=== PATIENT | male | born 1945 | race Two or more races ===

== ENCOUNTER 2021-01-30 10:04 | Inpatient (IN) | payer OTHER ==
[2021-01-29 20:00] VITALS: BP 94/46
[~2021-01-30] VITALS: Ht 175.3 cm; Wt 69.4 kg
[~2021-01-30 10:04] MED LIST: ACET325T53 PO; ALBU8.5H8 IH; ALLO300T2 PO; AMIN887L PO; APIX2.5T PO; ASCO500C17 PO; ATOR20TA PO; BENZ1LOZ58 MM; BUME1TAB34 PO; CARV3.12 PO; CHOL50009 PO; CLOP75TA15 PO; DOCU-141 PO; FAMO20TA8 PO; GABA300C PO; GUAI-671 PO; HYDR-4385 PO; INSU100C10 SQ; LACT1CAP71 PO; LISI2.5T2 PO; MAGN400O6 PO; MAGN400T8 PO; METF-866 PO; METF500T PO; MULT-447 PO; OMEG1CAP PO; POLY17PO4 PO; SITA50TA PO; SODI1TAB66 PO; SPIR50TA5 PO; TAMS-12 PO; THIA100T88 PO
--- NOTE | 2021-01-30 10:05 | NUR ---
DR. BURTON AT BEDSIDE FOR EVAL
--- NOTE | 2021-01-30 10:08 | NUR ---
CODE STROKE ACTIVATED.
--- NOTE | 2021-01-30 10:10 | NUR ---
PT IS WHEELED TO CT SCAN VIA STROKE PROTOCOL.
[2021-01-30] MEDS ORDERED: IV NS 0.9% 250 ML IV ONE (10:14)
[2021-01-30] MEDS ORDERED: CT SWABBABLE VALVE TRANS SET 1 EA INFUS.SET MC ONE (10:14)
[2021-01-30] MEDS ORDERED: IOHEXOL-350 100 ML VIAL IV ONE (10:14)
--- NOTE | 2021-01-30 10:27 | NUR ---
PATIENT CAME BACK FROM CT, IN NO DISTRESS
[2021-01-30 10:33] LABS: BASOPHILS % (AUTO) 0.4 % (0.0-2.0); EOSINOPHILS % (AUTO) 1.6 % (0.0-6.0); HEMATOCRIT 33 % (39-51); HEMOGLOBIN 10.8 g/dL (13.5-17.5); LYMPHOCYTES # (AUTO) 0.7 /CMM (0.8-4.8); LYMPHOCYTES % (AUTO) 6.7 % (20.0-44.0); MEAN CORPUSCULAR HGB CONC 32 g/dl (31.0-36.0); MEAN CORPUSCULAR VOLUME 84 fL (80-96); MONOCYTES # (AUTO) 0.7 /CMM (0.1-1.30); MONOCYTES % (AUTO) 6.4 % (2.0-12.0); NEUTROPHILS % (AUTO) 84.9 % (43.0-81.0); PLATELET COUNT (AUTO) 292 /CMM (150-450); RED BLOOD CELL COUNT(AUTO) 3.96 MIL/uL (4.5-6.0); WHITE BLOOD COUNT (AUTO) 10.6 K/uL (4.3-11.0)
--- NOTE | 2021-01-30 10:35 | NUR ---
swallow eval failed
[2021-01-30] MEDS ORDERED: ASCO500T10 PO (10:39)
[2021-01-30] MEDS ORDERED: SUCR1TAB PO (10:39)
[2021-01-30] MEDS ORDERED: PETR113O TP (10:39)
[2021-01-30] MEDS ORDERED: POVI3780 TP (10:39)
[2021-01-30] MEDS ORDERED: HONE15GE TP (10:39)
[2021-01-30] MEDS ORDERED: NEOM1OIN19 TP (10:39)
[2021-01-30] MEDS ORDERED: NA P133E RC (10:39)
[2021-01-30] MEDS ORDERED: IPRA3AMP23 IH (10:39)
[2021-01-30] MEDS ORDERED: CHOL100062 PO (10:39)
[2021-01-30] MEDS ORDERED: BUDE10.2 IH (10:39)
[2021-01-30] MEDS ORDERED: TIOT18CA3 IH (10:39)
[2021-01-30] MEDS ORDERED: SENN-261 PO (10:39)
[2021-01-30] MEDS ORDERED: ALPR0.25 PO (10:39)
[2021-01-30] MEDS ORDERED: MONT10TA22 PO (10:39)
[2021-01-30] MEDS ORDERED: MIRT-90 PO (10:39)
[2021-01-30] MEDS ORDERED: VANC750F2 IV (10:39)
[2021-01-30] MEDS ORDERED: SERT50TA PO (10:39)
[2021-01-30] MEDS ORDERED: ZINC50TA69 PO (10:39)
[2021-01-30] MEDS ORDERED: ONDA4TAB5 PO (10:39)
[2021-01-30] MEDS ORDERED: BISA10SU11 RC (10:39)
[2021-01-30] MEDS ORDERED: MAG30ORA PO (10:39)
[2021-01-30] MEDS ORDERED: MELA1TAB53 PO (10:39)
[2021-01-30] MEDS ORDERED: TRAM50TA2 PO (10:39)
[2021-01-30] MEDS ORDERED: BLOO-668 IN (10:39)
[2021-01-30] MEDS ORDERED: PANT20TA2 PO (10:39)
[2021-01-30 10:42] LABS: CALCIUM, SERUM 7.8 mg/dL (8.5-10.1); CREATININE 0.8 mg/dL (0.6-1.3)
[2021-01-30 10:43] LABS: POTASSIUM 2.4 mmol/L (3.5-5.1)
--- NOTE | 2021-01-30 10:48 | NUR ---
PATIENT ON 92% ON ROOM AIR. O2 APPLIED ON 2LPM VIA NC W/ SPO2 OF 98%.
--- NOTE | 2021-01-30 10:57 | NUR ---
TELE NEURO DR. GILMORE INTERVIEWED AND ASSESSED THE PATIENT. DOES NOT RECOMMEND TPA AT THIS TIME. BUT RECOMMENDED FURTHER TESTING ON ADMISSION.
[2021-01-30] MEDS ORDERED: IV D5/0.45 NACL 1,000 ML IV ONE (11:00)
[2021-01-30] MEDS ORDERED: ASPIRIN 300 MG/SUPP.RECT RC ONE ×2 (11:07→11:30)
--- NOTE | 2021-01-30 11:21 | NUR ---
[facility] CALLED SPECIFICATION WRITER PAGED.
--- NOTE | 2021-01-30 11:51 | NUR ---
TEXTED DR. JUAREZ FOR MRI APPROVAL.
[2021-01-30] MEDS ORDERED: Medication Not On Formulary EA (Ipratropium/Albuterol Sulfate (Duoneb 2.5-0.5 Mg/3 Ml So IH PRN (12:00)
[2021-01-30] MEDS ORDERED: BLOOD SUGAR DIAGNOSTIC 1 EACH STRIP IN SCH ×2 (12:00)
[2021-01-30] MEDS ORDERED: Medication Not On Formulary EA (Melatonin 1 MG) PO PRN (12:00)
[2021-01-30] MEDS ORDERED: SENNOSIDES 8.6 MG TABLET PO PRN (12:00)
[2021-01-30] MEDS ORDERED: DEXTROSE 50%-WATER 50 ML DISP.SYRIN IV PRN (12:00)
[2021-01-30] MEDS ORDERED: BISACODYL SUPP (10 MG) 10 MG/SUPP.RECT SUPP.RECT RC PRN (12:00)
[2021-01-30] MEDS ORDERED: MAG HYDROX/AL HYDROX/SIMETH 30 ML UDC PO PRN ×2 (12:00)
[2021-01-30] MEDS ORDERED: MAGNESIUM HYDROXIDE 30 ML UDC PO PRN (12:00)
--- NOTE | 2021-01-30 12:04 | NUR ---
MANAGER EMBALMER FUNERAL DIRECTOR NOTTIFIED
[2021-01-30] MEDS: SUCRALFATE 1 G TABLET PO SCH ×3 (13:00→21:00)
--- NOTE | 2021-01-30 13:23 | NUR ---
PATIENT UNABLE TO DO MRI DUE TO A CARDIAC PACEMAKER WHICH IS INSERTED MORE THAN 10 YEARS AGO.
--- NOTE | 2021-01-30 13:24 | NUR ---
CORNELIA STOKES NP MADE AWARE.
[2021-01-30] MEDS ORDERED: ONDANSETRON 4 MG TAB.RAPDIS PO PRN (14:00)
[2021-01-30] MEDS ORDERED: IPRATROPIUM NEB FS 0.5 MG/2.5 ML AMPUL.NEB NEB PRN (14:00)
[2021-01-30] MEDS: BLOOD SUGAR DIAGNOSTIC 1 EACH STRIP IN SCH ×3 (14:28→22:28)
[2021-01-30] MEDS: INSULIN REGULAR, HUMAN 100 UNIT/ML 3 ML VIAL SQ PRN ×3 (14:28→22:28)
[2021-01-30] MEDS ORDERED: POTASSIUM CL. PREMIX PERIPHER. 50 ML ONE ×2 (14:43→15:42)
[2021-01-30] MEDS: POTASSIUM CL. PREMIX PERIPHER. 50 ML IV SCH ×4 (14:46→23:31)
--- NOTE | 2021-01-30 16:01 | NUR ---
BED 102
--- NOTE | 2021-01-30 16:27 | NUR ---
PATIENT RESTING, NO DISTRESS NOTED. NEEDS ATTENDED.
--- NOTE | 2021-01-30 16:34 | NUR ---
REPORT GIVEN TO ARETHA CANDELARIA FOR SHARLENE.
--- NOTE | 2021-01-30 16:49 | NUR ---
PATIENT TRANSFERRED TO ROOM 102 VIA ACLS PROTOCOL. PATIENT IN STABLE CONDITION. NO DISTRESS NOTED. NEEDS ATTENDED.
--- NOTE | 2021-01-30 16:55 | NUR ---
Received patient from ER via gurney, non-ambulatory, A/Ox2, facial drooping and asymmetry noted, VS stable , on NC at 2L, tolerating well, SPO2 99%, Goel in place, intact, daring yellow urine by gravity.Left upper arm mid line noted, intact and patent,NPO noted; Pacemaker noted on L upper chest wall, connected to tele-monitor V-pacing with HR of 80, safety precautions in place, bed locked, lowest position, hob elevated, call light in reach, will cont to monitor
[2021-01-30 17:00] VITALS: BP 125/54
[2021-01-30] MEDS: CARVEDILOL 6.25 MG TABLET PO SCH (17:00)
--- NOTE | 2021-01-30 17:35 | NUR ---
BLOOD SUGAR 166, PER ADMITTING HOSPITALIST, FOLLOW UP THE PROTOCOL, WILL ADMINISTER INSULIN PER SLIDING SCALE
--- NOTE | 2021-01-30 18:34 | NUR ---
RN CLOSING NOTES REMAINS IN ROOM STABLE, CLEANED AND REPOSITIONED, SAFETY PRECAUTIONS IN PLACE, WILL ENDORSE TO PM SHIFT RN FOR SHARLENE
[2021-01-30] MEDS: IPRATROPIUM NEB FS 0.5 MG/2.5 ML AMPUL.NEB NEB SCH (19:30)
--- NOTE | 2021-01-30 19:30 | NUR ---
RN NOTE RECEIVED PT IN BED, WITH LEFT FACIAL DROOPING, PT NODS TO YES AND NO. DENIES ANY PAIN. NO DISTRESS NOTED. PT ON TELE MONITOR, SHOWS VPACING. PT WITH PICC YAYO ON VONDA, PATENT AND INTACT, FLUSHES WELL. WITH SAINI IN PLACE. DRAINING CASANDRA COLOR URINE. PT NPO. WILL CONTINUE TO MONITOR. ALL SAFETY MEASURES IMPLEMENTED PER PROTOCOL.
[2021-01-30 20:00] VITALS: BP 94/46
--- NOTE | 2021-01-30 20:37 | NUR ---
RN NOTE PT K LEVEL AT 2.8. NOTIFIED BROILER CHEF OR COOK JOSE R KERNS. ORDERED KCL 80 MEQ IV ANG MG 1 GM. ORDER NOTED AND CARRIED OUT.
[2021-01-30] MEDS ORDERED: POTASSIUM CHLORIDE 10 MEQ/50 ML PREMIXED IVPB FOR PERIPHERAL LINE IV ONE (21:00)
[2021-01-30] MEDS ORDERED: Magnesium 1GM/D5W 100ML PREMIX PIGGYBACK IV ONE (21:00)
[2021-01-30] MEDS ORDERED: ACETAMINOPHEN 325 MG TABLET PO SCH (22:00)
[2021-01-30] MEDS: MIRTAZAPINE 15 MG TABLET PO SCH (22:00)
[2021-01-30] MEDS: MONTELUKAST SODIUM (10MG) 10 MG TABLET PO SCH (22:00)
[2021-01-30] MEDS: TAMSULOSIN 0.4 MG CAP.SR.24H PO SCH (22:00)
[2021-01-30] MEDS: ATORVASTATIN 40 MG TABLET PO SCH (22:00)
--- NOTE | 2021-01-30 23:00 | NUR ---
RN NOTE PT VERBALIZED "GO AWAY, DO NOT TOUCH ME", "NO". NO SLURRED SPEECH NOTED. PT DOES NOT WANT TO BE BOTHERED.
[2021-01-31] VITALS: BP 101/56
[2021-01-31] MEDS: POTASSIUM CL. PREMIX PERIPHER. 50 ML IV SCH ×6 (00:27→06:00)
--- NOTE | 2021-01-31 03:45 | NUR ---
RN NOTE CALLED PT [facility] REGARDING POLST. PT WITH NO POLST AT FACILITY. PT UNABLE TO SAY CODE STATUS. NOTIFIED GLOBAL UPSTREAM MARKETING MANAGER, ORDERED FULL CODE. CHARGE NURSE MADE AWARE.
[2021-01-31 04:00] VITALS: BP 135/58
--- NOTE | 2021-01-31 05:23 | NUR ---
RN NOTE NOTED SWELLING ON PT LEFT ARM WHERE PICC LINE PLACED. COOL TO TOUCH, NO SKIN BREAKDOWN NOTED. MANAGING MEMBER GLOVE TURNER AND FORMER AUTOMATIC ODELL NOTIFIED. ORDERED CXRAY AND VENOUS DOPPLER U/S ON LEFT ARM. ORDER NOTED AND CARRIED OUT. KEPT EXTREMITY ELEVATED.
[2021-01-31 06:41] LABS: BASOPHILS # (AUTO) 0.1 /CMM (0.0-0.2); BASOPHILS % (AUTO) 0.5 % (0.0-2.0); EOSINOPHILS % (AUTO) 4.7 % (0.0-6.0); HEMATOCRIT 32 % (39-51); LYMPHOCYTES # (AUTO) 0.8 /CMM (0.8-4.8); LYMPHOCYTES % (AUTO) 7.3 % (20.0-44.0); MEAN CORPUSCULAR HGB CONC 32 g/dl (31.0-36.0); MEAN CORPUSCULAR VOLUME 84 fL (80-96); MONOCYTES # (AUTO) 0.6 /CMM (0.1-1.30); MONOCYTES % (AUTO) 5.1 % (2.0-12.0); NEUTROPHILS # (AUTO) 9.2 /CMM (1.8-8.9); NEUTROPHILS % (AUTO) 82.4 % (43.0-81.0); PLATELET COUNT (AUTO) 324 /CMM (150-450); RED BLOOD CELL COUNT(AUTO) 3.77 MIL/uL (4.5-6.0); WHITE BLOOD COUNT (AUTO) 11.1 K/uL (4.3-11.0)
[2021-01-31 07:10] LABS: THYROID STIMULATING HORMONE 2.162 uIU/mL (0.358-3.74)
--- NOTE | 2021-01-31 07:10 | NUR ---
RN NOTE PT REMAIN IN BED, ABLE TO SAY YES AND NO. NEW IV LINE INSERTED ON RIGHT ARM 22G. WITH GOOD BLOOD RETURN. PT WITH MULTIPLE WOUNDS. REPOSITIONED. SAINI IN PLACE, CLOUDY URINE NOTED. REMAIN AFEBRILE. WILL ENDORSE TO NEXT SHIFTNURSE FOR SHARLENE.
[2021-01-31 07:11] LABS: ALBUMIN 1.7 g/dL (3.4-5.0); BILIRUBIN,TOTAL 0.6 mg/dL (0.2-1.0); CALCIUM, SERUM 7.9 mg/dL (8.5-10.1); CREATININE 0.7 mg/dL (0.6-1.3); MAGNESIUM 1.5 mg/dL (1.8-2.4); PHOSPHORUS 2.4 mg/dL (2.5-4.9); TOTAL PROTEIN, SERUM 7.1 g/dL (6.4-8.2)
--- NOTE | 2021-01-31 07:30 | NUR ---
RN OPENING NOTE PATIENT PRESENT IN BED, AWAKE, A/OX2, NOTED MILD FACIAL DROOPING, CLEAR SPEECH, ABLE TO MAKE NEEDS KNOWN, ON 2L OF O2 VIA NC, TOLERATING WELL , SPO2 98%, V PACING ON TELE-MONITOR POST STROKE STATUS NOTED, STILL NPO WAITING FOR SWALLOW EVAL, SAINI CATH IN PLACE, BED LOCKED , IN LOWEST POSITION, CALL LIGHT IN REACH WILL CONT TO MONITOR
--- NOTE | 2021-01-31 07:39 | NUR ---
WOUND CARE CONSULT: REVIEWED CHART, NURSING DOCUMENTATION AND PHOTOS WHICH INDICATE SACRAL WOUND AND LOWER EXTREMITY WOUNDS, PRESENT ON ADMISSION. SURGICAL AND PODIATRY CONSULTS CALLED TO DR GIANG AND DR WALKER. PT IS ON TESS ISOFLEX LOW AIRLOSS BED. ALL SKIN PROTECTION RECOMMENDATIONS DISCUSSED WITH NURSING STAFF. MD IN AGREEMENT WITH PLAN OF CARE.
[2021-01-31 08:00] VITALS: BP 115/76
[2021-01-31] MEDS ORDERED: Z GUARD REMEDY 2 OZ OINT TP PRN (08:00)
[2021-01-31] MEDS: BLOOD SUGAR DIAGNOSTIC 1 EACH STRIP IN SCH ×4 (08:17→21:47)
--- NOTE | 2021-01-31 08:30 | NUR ---
Swelling of left arm noted, MRI called, informed about SVT , will notify attending hospitalist
[2021-01-31] MEDS: THIAMINE HCL 100 MG TABLET PO SCH (09:00)
[2021-01-31] MEDS: CHOLECALCIFEROL 1,000 UNIT TABLET (VIT D3) PO SCH (09:00)
[2021-01-31] MEDS ORDERED: BACI/NEOM/POLY B OINT PKT 1 UDPKT PACKET TP SCH (09:00)
[2021-01-31] MEDS: ZINC SULFATE 220 MG CAPSULE PO SCH (09:00)
[2021-01-31] MEDS: ASCORBIC ACID 500 MG TABLET PO SCH (09:00)
[2021-01-31] MEDS: CARVEDILOL 6.25 MG TABLET PO SCH ×2 (09:00→16:34)
[2021-01-31] MEDS: SUCRALFATE 1 G TABLET PO SCH ×4 (09:00→21:47)
[2021-01-31] MEDS: SERTRALINE HCL 50 MG TABLET PO SCH (09:00)
[2021-01-31] MEDS: ASPIRIN EC 81 MG TABLET.DR PO SCH (09:00)
[2021-01-31] MEDS: Z GUARD REMEDY 2 OZ OINT TP SCH (09:16)
[2021-01-31] MEDS: INSULIN REGULAR, HUMAN 100 UNIT/ML 3 ML VIAL SQ PRN ×3 (09:17→21:51)
[2021-01-31] MEDS: PANTOPRAZOLE 40 MG VIAL IV SCH (09:43)
--- NOTE | 2021-01-31 10:00 | NUR ---
Passes swallow eval with Speech Therapist, recommended puree diet, Hospitalist notified
[2021-01-31] MEDS: Magnesium 1GM/D5W 100ML PREMIX 100 ML IV SCH ×2 (11:02→12:23)
[2021-01-31] MEDS: FLUTICASONE/VILANTEROL 1 EACH BLST.W.DEV IH SCH (11:02)
[2021-01-31 11:33] LABS: THYROID STIMULATING HORMONE 2.157 uIU/mL (0.358-3.74)
[2021-01-31] MEDS: FUROSEMIDE 40 MG/4 ML VIAL IV SCH ×3 (11:41→20:10)
[2021-01-31] MEDS: POTASSIUM CHLORIDE 20 MEQ TAB.PRT.SR PO SCH ×3 (11:42→13:36)
[2021-01-31] MEDS ORDERED: K PHOS NEUTRAL 250 MG TABLET PO ONE (12:00)
[2021-01-31] MEDS: RIVAROXABAN 10 MG TABLET PO SCH (12:22)
--- NOTE | 2021-01-31 15:53 | NUR ---
SS consult for Stroke has been received. SW will follow up at a later time.
[2021-01-31 16:00] VITALS: BP 110/50
--- NOTE | 2021-01-31 18:44 | NUR ---
RN CLOSING NOTE PATIENT REMAINS IN ROOM, STABLE, VISIBLE IMPROVEMENT OF FACIAL SYMMETRY , WEAK ARMS BUT ABLE TO MOVE, TOLERATING O2 THERAPY WELL, IV LINE PATENT AND INTACT, DR SUN MADE ATTEMPT TO INSERT MIDLINE, UNABLE, WILL FOLLOW UP TOMORROW. SAFETY MEASURES IN PLACE, WILL ENDORSE TO PM SHIFT RN FOR SHARLENE
[2021-01-31 20:00] VITALS: BP 97/38
--- NOTE | 2021-01-31 20:00 | NUR ---
MS RN NOTE PT IN BED AWAKE. A/O X 3, NO SOB, NO DISTRESS OR DISCOMFORT NOTED. DENIES PAIN. PT HAS LASIX 40 MG DUE NOW BUT BP WAS LOW 103/[address] MORALES AND RECEIVED THE ORDER TO HOLD THE LASIX MEDICATION AT THIS TIME. ORDER NOTED AND CARRIED OUT. F/C INTACT AND PATENT DRAINING YELLOWISH COLOR URINE. RFA # 22 G SL INTACT AND PATENT. VONDA SWOLLEN AND KEPT IT ELEVATED. ALSO LOWER EXT'S KEPT IT ELEVATED ON PILLOWS. SIDE RAILS UP X 2 AND CALL LIGHT WITHIN REACH. CONTINUE TO MONITOR HIM.
[2021-01-31] MEDS: TAMSULOSIN 0.4 MG CAP.SR.24H PO SCH (21:46)
[2021-01-31] MEDS: ATORVASTATIN 40 MG TABLET PO SCH (21:46)
[2021-01-31] MEDS: MONTELUKAST SODIUM (10MG) 10 MG TABLET PO SCH (21:47)
[2021-01-31] MEDS: MIRTAZAPINE 15 MG TABLET PO SCH (21:47)
[2021-02-01 06:00] VITALS: BP 95/41
[2021-02-01 06:01] LABS: BASOPHILS % (AUTO) 0.2 % (0.0-2.0); EOSINOPHILS % (AUTO) 2.7 % (0.0-6.0); HEMATOCRIT 31 % (39-51); LYMPHOCYTES # (AUTO) 0.8 /CMM (0.8-4.8); LYMPHOCYTES % (AUTO) 7.8 % (20.0-44.0); MEAN CORPUSCULAR HGB CONC 33 g/dl (31.0-36.0); MEAN CORPUSCULAR VOLUME 83 fL (80-96); MONOCYTES # (AUTO) 0.6 /CMM (0.1-1.30); MONOCYTES % (AUTO) 5.3 % (2.0-12.0); NEUTROPHILS # (AUTO) 9.1 /CMM (1.8-8.9); PLATELET COUNT (AUTO) 286 /CMM (150-450); RED BLOOD CELL COUNT(AUTO) 3.66 MIL/uL (4.5-6.0); WHITE BLOOD COUNT (AUTO) 10.8 K/uL (4.3-11.0)
[2021-02-01 06:09] LABS: ALANINE AMINOTRANSFERASE 11 U/L (12-78); ALBUMIN 1.5 g/dL (3.4-5.0); ALKALINE PHOSPHATASE 80 U/L (46-116); ASPARTATE AMINOTRANSFERASE 23 U/L (15-37); BILIRUBIN,TOTAL 0.4 mg/dL (0.2-1.0); CALCIUM, SERUM 7.7 mg/dL (8.5-10.1); CARBON DIOXIDE 27 mmol/L (21-32); CHLORIDE 110 mmol/L (98-107); CREATININE 0.8 mg/dL (0.6-1.3); GLUCOSE 88 mg/dL (74-106); MAGNESIUM 1.7 mg/dL (1.8-2.4); PHOSPHORUS 2.4 mg/dL (2.5-4.9); POTASSIUM 2.9 mmol/L (3.5-5.1); SODIUM SERUM 145 mmol/L (136-145); TOTAL PROTEIN, SERUM 6.4 g/dL (6.4-8.2); UREA NITROGEN, BLOOD 7 mg/dL (7-18)
--- NOTE | 2021-02-01 06:31 | NUR ---
MS RN NOTE PT IN BED ASLEEP, AROUSABLE. NO DISTSRESS OR DISCOMFORT NOTED. NO S/S OF PAIN NOTED. SL RFA #22 G INTACT AND PATENT. F/C INTACT AND PATENT DRAINING CLOUDY URINE. REPOSIITION HIM Q2H, KEPT HIM DRY AND CLEAN. SIDE RAILS UP X 2 AND CALL LIGHT WITHIN REACH. VSS. WILL ENDORSE TO DAY SHIFT NURSE FOR CONTINUE TO CARE.
--- NOTE | 2021-02-01 07:30 | NUR ---
RN OPENING NOTES PATUENT PRESENT IN BED, AWAKE, A/OX2, ON NC VIA 2L OF O2, SPO2 97%, RESPIRATIONS, EVEN AND UNLABORED, MED SURG STATUS, IV LINE ON R FA, FLUSHED, CONNECTED TO TKO, INTACT, FLUSHED, SAFETY MEASURES IN PLACE, CALL LIGHT IN REACH, HOB ELEVATED, WILL CONT TO MONITOR
[2021-02-01] MEDS: BLOOD SUGAR DIAGNOSTIC 1 EACH STRIP IN SCH ×4 (07:39→21:23)
[2021-02-01] MEDS: INSULIN REGULAR, HUMAN 100 UNIT/ML 3 ML VIAL SQ PRN ×3 (07:46→21:24)
--- NOTE | 2021-02-01 07:46 | NUR ---
blood sugar, 76, orange juice given, patient will be help with breakfast
[2021-02-01 08:00] VITALS: BP 96/51
[2021-02-01] MEDS: CARVEDILOL 6.25 MG TABLET PO SCH ×2 (08:38→17:29)
[2021-02-01] MEDS: SERTRALINE HCL 50 MG TABLET PO SCH (08:38)
[2021-02-01] MEDS: THIAMINE HCL 100 MG TABLET PO SCH (08:38)
[2021-02-01] MEDS: ZINC SULFATE 220 MG CAPSULE PO SCH (08:38)
[2021-02-01] MEDS: SUCRALFATE 1 G TABLET PO SCH ×4 (08:38→21:14)
[2021-02-01] MEDS: Z GUARD REMEDY 2 OZ OINT TP SCH (08:39)
[2021-02-01] MEDS: CHOLECALCIFEROL 1,000 UNIT TABLET (VIT D3) PO SCH (08:39)
[2021-02-01] MEDS: ASCORBIC ACID 500 MG TABLET PO SCH (08:39)
[2021-02-01] MEDS: THERAHONEY GEL 1.5 OZ TUBE TP SCH (08:39)
[2021-02-01] MEDS: NEOMY SULF/BACITRAC ZN/POLY 15 GM TUBE TP SCH (08:39)
[2021-02-01] MEDS: ASPIRIN EC 81 MG TABLET.DR PO SCH (08:39)
[2021-02-01] MEDS: PANTOPRAZOLE 40 MG VIAL IV SCH (08:39)
[2021-02-01] MEDS: FLUTICASONE/VILANTEROL 1 EACH BLST.W.DEV IH SCH (08:40)
[2021-02-01] MEDS ORDERED: POTASSIUM CHLORIDE 20 MEQ TAB.PRT.SR PO SCH (09:00)
[2021-02-01] MEDS: Magnesium 1GM/D5W 100ML PREMIX 100 ML IV SCH ×2 (09:51→11:08)
[2021-02-01] MEDS: POTASSIUM CHLORIDE 20 MEQ POWDER PACKET PO SCH ×5 (09:51→13:00)
[2021-02-01] MEDS: NEUTRA PHOS 1 POWD.PACKET PO SCH ×2 (09:52→17:31)
[2021-02-01] MEDS: ENSURE ENLIVE 237 ML LIQUID (VANILLA) PO SCH ×3 (10:00→16:41)
--- NOTE | 2021-02-01 12:05 | NUR ---
Septic Tank Installer Consult: real estate services administrator consult requested for stroke. Per chart, patient was brought into the hospital by ambulance for stroke on 01/30/2021. Patient is a 75-year-old, male. SW met with the patient in his hospital room on the med-surgical unit. Patient was alert and oriented x1. Patient nodded yes when SW confirmed patient's full name. Patient presented non-verbal but was able to answer questions by nodding yes and no. Patients RN Leyla stated that the patient was previously alert and oriented x4 and verbal. RN and SW attempted to speak with the patient, but he presented non-verbal. Patient is currently living at [facility] ([facility])[address] [address]; [phone]. SW asked the patient if he has a history of stroke and patient nodded no. SW discussed social support with the patient and asked if patient had any friends or family contact and patient nodded no. SW asked the patient about any sources of income and patient nodded yes when asked if he had SSI. Patient denied history of substance use. Patient denied any history of mental illness. Patient denied history of suicidal or homicidal ideation. SW was unable to administer PHQ-9 assessment and provide patient with stroke resources as the patient is currently non-verbal. SW will coordinate with nursing staff and follow up with the patient when he is more alert and oriented. Discharge plans discussed with the patient, and patient nodded yes when asked if he plans to return to his prior living arrangement at [facility]. PLAN: Patient stated he will return to his prior living arrangement at [facility] at the time of discharge. SW will coordinate with nursing staff to provide the patient with stroke resources when he is more alert and oriented. No further SS intervention at this time, however, SW will remain available as needed.
[2021-02-01] MEDS: FUROSEMIDE 40 MG/4 ML VIAL IV SCH ×3 (14:44→22:04)
[2021-02-01 16:00] VITALS: BP 108/48
[2021-02-01] MEDS: RIVAROXABAN 10 MG TABLET PO SCH (17:30)
--- NOTE | 2021-02-01 18:59 | NUR ---
RN CLOSING NOTE PATIENT REMAINS IN ROOM, STABLE, TOLERATING O2 WELL, WEAK ARMS BUT ABLE TO MOVE, T, IV LINE PATENT AND INTACT, MEDICATIONS GIVEN, WOUND CARE DONE, CLEANED AND REPOSITIONED SAFETY MEASURES IN PLACE, WILL ENDORSE TO PM SHIFT RN FOR SHARLENE
[2021-02-01] MEDS: IPRATROPIUM NEB FS 0.5 MG/2.5 ML AMPUL.NEB NEB SCH (19:30)
--- NOTE | 2021-02-01 19:30 | NUR ---
RN NOTE RECEIVED PATIENT IN BED, ON SEMI CABRERA'S, AO X 2-3, IN NO S/SX OF ACUTE DISTRESS AT THIS TIME, BREATHING IS EVEN AND UNLABOREDSATURATION 98% ON 2L VIA NC, HR IS 60. NOTED IV SITE AT RFA 22G, PATENT AND FLUSHING WELL, NO S/S OF INFECTION OR INFILTRATION. SAINI CATHETER CONNECTED TO URINE BAG IN PLACE, DRAINING TO A CLEAR YELLOW OUTPUT. WOUND DRESSING AT BLE DRY AND INTACT. SAFETY MEASURES IMPLEMENTED. PATIENT BED ALARM IS ON. HEAD OF BED ELEVATED. BED IS LOCKED, IN LOWEST POSITION AND SIDE RAILS UP. CALL LIGHT WITHIN REACH OF THE PATIENT. WILL CONTINUE TO MONITOR AND REASSESS FOR ANY CHANGES.
--- NOTE | 2021-02-01 19:30 | NUR ---
RT NOTE TX NOT GIVEN DUE TO PENDING COVID RESULTS. Addendum: 02/01/21 at 2302 by ARGENTINA JOHNSON RT COVID TEST CAME BACK NEGATIVE 01/30/2021. WILL ADMINISTER TX @ 0130.
[2021-02-01 20:00] VITALS: BP 92/35
--- NOTE | 2021-02-01 20:00 | NUR ---
RN NOTE NOTED BP OF 88/40 TAKEN BY AUTOMATIC CUFF ON R UPPER ARM. TAKEN SECOND TIME AND SHOWED 92/35. REPOSITIONED AND PLACED PATIENT ON [place] POSITION. RECHECKED BLOOD PRESSURE AND REVEALED, 98/44. WILL CONTINUE TO MONITOR.
--- NOTE | 2021-02-01 21:00 | NUR ---
RN NOTE NEURO CONSULT DONE AT BEDSIDE, MD STATED PATIENT APPEARS STABLE. NO NEW ORDERS RECEIVED.
[2021-02-01] MEDS: MUPIROCIN OINT 2% 22 GM TUBE NS SCH (21:13)
[2021-02-01] MEDS: MIRTAZAPINE 15 MG TABLET PO SCH (21:14)
[2021-02-01] MEDS: ATORVASTATIN 40 MG TABLET PO SCH (21:14)
[2021-02-01] MEDS: MONTELUKAST SODIUM (10MG) 10 MG TABLET PO SCH (21:14)
[2021-02-01] MEDS: TAMSULOSIN 0.4 MG CAP.SR.24H PO SCH (21:14)
--- NOTE | 2021-02-01 21:30 | NUR ---
RN NOTE TELEPHONE CALL TO RESPIRATORY REGARDING ATROVENT TX, SPOKE WITH JOHN ADVISED THEM OF NEGATIVE PCR RESULT, STATED THEY WILL LOOK INTO IT. MILITARY AIRCRAFT DESIGNER MADE AWARE.
[2021-02-02] VITALS (38 sets, daily range): BP systolic 84–112; BP diastolic 36–65
--- NOTE | 2021-02-02 01:30 | NUR ---
RN NOTE PATIENT C/O OF SOB, STATED "I CANNOT BREATH", SATURATION AT 97% ON 2L VIA NC, +CRACKLES ON AUSCULTATION, APPEARS CONGESTED. RT WAS NOTIFIED, NASOPHARYNGEAL SUNCTION DONE BY RT. MODERATE THICK WHITISH SECRETIONS NOTED. BREATHING WAS BETTER AFTER SUCTIONING. OFFICE SPEC AWARE
[2021-02-02] MEDS: IPRATROPIUM NEB FS 0.5 MG/2.5 ML AMPUL.NEB NEB SCH ×4 (01:38→19:53)
--- NOTE | 2021-02-02 01:40 | NUR ---
RT NOTE NASOTRACHEAL SUCTION PERFORMED ON PATIENT. MODERATE THICK WHITE YELLOW SECRETIONS NOTED. BARI ZAYAS @ BEDSIDE. B/S IMPROVED POST TX AND SUCTION. NO RESPIRATORY DISTRESS NOTED.
[2021-02-02 06:07] LABS: BASOPHILS % (AUTO) 0.2 % (0.0-2.0); EOSINOPHILS % (AUTO) 0.5 % (0.0-6.0); HEMATOCRIT 28 % (39-51); HEMOGLOBIN 8.9 g/dL (13.5-17.5); LYMPHOCYTES # (AUTO) 0.4 /CMM (0.8-4.8); LYMPHOCYTES % (AUTO) 3.1 % (20.0-44.0); MEAN CORPUSCULAR HGB CONC 32 g/dl (31.0-36.0); MEAN CORPUSCULAR VOLUME 83 fL (80-96); MONOCYTES # (AUTO) 0.4 /CMM (0.1-1.30); MONOCYTES % (AUTO) 2.7 % (2.0-12.0); NEUTROPHILS # (AUTO) 12.9 /CMM (1.8-8.9); NEUTROPHILS % (AUTO) 93.5 % (43.0-81.0); PLATELET COUNT (AUTO) 276 /CMM (150-450); RED BLOOD CELL COUNT(AUTO) 3.41 MIL/uL (4.5-6.0); WHITE BLOOD COUNT (AUTO) 13.8 K/uL (4.3-11.0)
[2021-02-02 06:26] LABS: ALBUMIN 1.5 g/dL (3.4-5.0); BILIRUBIN,TOTAL 0.5 mg/dL (0.2-1.0); CALCIUM, SERUM 7.8 mg/dL (8.5-10.1); CREATININE 0.8 mg/dL (0.6-1.3); MAGNESIUM 1.7 mg/dL (1.8-2.4); PHOSPHORUS 3.2 mg/dL (2.5-4.9); TOTAL PROTEIN, SERUM 6.3 g/dL (6.4-8.2)
[2021-02-02 06:57] LABS: POTASSIUM 2.6 mmol/L (3.5-5.1)
--- NOTE | 2021-02-02 08:00 | NUR ---
RN OPENING NOTE RECEIVED PATIENT IN BED, AO X 2-3, ABLE TO RESPONDS ALL STIMULI. DOES NO APPEARS DISTRESS OR DISCOMFORT. SKIN IS WARM TO TOUCH, KEEP CLEAN/DRY INTACT IV SITE. RESPIRATORY EVEN AND UNLABORED WITH OXYGEN AT 2LPM. KEPT ELEVATED HOB FOR ENSURE AIR AND ASPIRATION PRECAUTION, ALSO LOWEST BED POSITION FOR SAFETY. CALL LIGHT WITHIN REACH, WILL CONTINUE TO MONITOR.
[2021-02-02] MEDS: BLOOD SUGAR DIAGNOSTIC 1 EACH STRIP IN SCH ×4 (08:14→22:38)
[2021-02-02] MEDS: CARVEDILOL 6.25 MG TABLET PO SCH ×2 (09:00→16:27)
[2021-02-02] MEDS ORDERED: SPIRONOLACTONE 25 MG TABLET PO SCH (09:00)
--- NOTE | 2021-02-02 09:00 | NUR ---
PATIENT DONE SWALLOW EVAL AND PASSED, WILL CONTINUE TO ASPIRATION PRECAUTION.
[2021-02-02] MEDS: CHOLECALCIFEROL 1,000 UNIT TABLET (VIT D3) PO SCH (09:15)
[2021-02-02] MEDS: SUCRALFATE 1 G TABLET PO SCH ×4 (09:15→21:43)
[2021-02-02] MEDS: THIAMINE HCL 100 MG TABLET PO SCH (09:15)
[2021-02-02] MEDS: Magnesium 1GM/D5W 100ML PREMIX 100 ML IV SCH ×2 (09:15→10:50)
[2021-02-02] MEDS: ASCORBIC ACID 500 MG TABLET PO SCH (09:15)
[2021-02-02] MEDS: POTASSIUM CHLORIDE 20 MEQ TAB.PRT.SR PO SCH ×5 (09:15→13:00)
[2021-02-02] MEDS: ZINC SULFATE 220 MG CAPSULE PO SCH (09:15)
[2021-02-02] MEDS: ASPIRIN EC 81 MG TABLET.DR PO SCH (09:15)
[2021-02-02] MEDS: PANTOPRAZOLE 40 MG VIAL IV SCH (09:16)
[2021-02-02] MEDS: ENSURE ENLIVE 237 ML LIQUID (VANILLA) PO SCH ×3 (09:17→16:31)
[2021-02-02] MEDS: FLUTICASONE/VILANTEROL 1 EACH BLST.W.DEV IH SCH (09:17)
[2021-02-02] MEDS: NEOMY SULF/BACITRAC ZN/POLY 15 GM TUBE TP SCH (09:18)
[2021-02-02] MEDS: THERAHONEY GEL 1.5 OZ TUBE TP SCH (09:18)
[2021-02-02] MEDS: MUPIROCIN OINT 2% 22 GM TUBE NS SCH ×2 (09:18→21:44)
[2021-02-02] MEDS: Z GUARD REMEDY 2 OZ OINT TP SCH (09:19)
--- NOTE | 2021-02-02 09:20 | NUR ---
BP-105/36, P-60, HELD BP MEDS.
[2021-02-02] MEDS: SERTRALINE HCL 50 MG TABLET PO SCH (09:27)
[2021-02-02] MEDS: INSULIN REGULAR, HUMAN 100 UNIT/ML 3 ML VIAL SQ PRN (09:38)
--- NOTE | 2021-02-02 13:05 | NUR ---
PATIENT NOTICED CHEST CONGESTION, MD MADE AWARE. NEW ORDER; NPO, AND START NG TUBE. NOTED CARRIED OUT.
[2021-02-02 14:04] LABS: ABG BASE EXCESS 3.4 mmol/L; ABG OXYGEN SATURATION 90.1 % (92.0-98.5); ABG PCO2 63.5 mmHg (35.0-45.0); ABG PH 7.306 (7.350-7.450); ABG PO2 66.1 mmHg (75.0-100.0); AaDO2 437.6 mmHg; COHb 0.4 % (0.5-1.5); MetHb 0.3 % (0.0-1.5); O2Hb 89.5 % (94.0-97.0); SITE, ABG Right Brachial; VENT MODE, BG NRB AT 15LPM
--- NOTE | 2021-02-02 14:14 | NUR ---
RN NOTES RECEIVED PT IN ROOM 254 FROM [facility] , PT IS LETHARGIC AND DOES NOT FOLLOW COMMAND, ON TELE SB HR IN HIGH 50'S , SAINI DRAINING TO GRAVITY, LEFT HAND AND R AC IV SITES CLEAN, DRY INTACT,DR SUN AT THE BEDSIDE, SR UP x3, CALL LIGHT WITHIN EASY REACH, BED LOCKED AND IN LOWEST POSITION, CONTINUE TO MONITOR
--- NOTE | 2021-02-02 14:30 | NUR ---
PATIENT C/O DIFFICULT TO BREATHING, O2SAT 86-86% WITH NRM AT 10 LPM. ABG DONE AND MD MADE AWARE, PATIENT TRANSFERRED TO ICU, REPORTED ADEL/RN.
--- NOTE | 2021-02-02 14:45 | NUR ---
RN NOTES PT INTUBATED BY DR SUN AND PALCED ON VENT . LOW BP NOTED, LEVO ORDERED PER DR SUN ORDER . CONTINUE TO MONITOR .
--- NOTE | 2021-02-02 14:45 | NUR ---
pt orally intubated by Jean Claude Red with 7.5 et-tube secured at 25cm. settings as ordered alarms set and audible. positive co2 exchange. large pale yellow sputum. vent plugged into red outlet. ambu- bag at head of bed
[2021-02-02] MEDS ORDERED: ROCURONIUM BROMIDE 50 MG/5 ML IV ONE ×2 (15:17→20:56)
[2021-02-02] MEDS: POTASSIUM CHLORIDE 20 MEQ POWDER PACKET NG SCH ×2 (15:22→16:17)
[2021-02-02] MEDS: NOREPINEPHRINE 8 MG in IV NS 0.9% 242 ML IV PRN ×2 (15:28→19:59)
[2021-02-02 16:06] LABS: ABG BASE EXCESS -0.1 mmol/L; ABG OXYGEN SATURATION 97.6 % (92.0-98.5); ABG PCO2 46.2 mmHg (35.0-45.0); ABG PH 7.361 (7.350-7.450); ABG PO2 101.6 mmHg (75.0-100.0); AaDO2 565.2 mmHg; COHb 0.8 % (0.5-1.5); MetHb 0.4 % (0.0-1.5); O2Hb 96.4 % (94.0-97.0); PEEP,BG 0 cm H2O; SITE, ABG Right Brachial; VT, ABG 450 mL
[2021-02-02] MEDS: RIVAROXABAN 10 MG TABLET PO SCH (16:31)
[2021-02-02] MEDS: SPIRONOLACTONE 25 MG TABLET PO SCH (16:32)
[2021-02-02 17:27] LABS: CHLORIDE,URINE RANDOM 142 mmol/L (55-125); POTASSIUM RNDM,URINE 61 mmol/L (25-125); URINE SODIUM, RANDOM 72 mmol/l (40-220)
--- NOTE | 2021-02-02 17:30 | NUR ---
RT BRONCHOSCOPY DONE AT BEDSIDE WITH DR. SUN. PT TOLERATED PROCEDURE WELL. NO COMPLICATIONS NOTED. RTS AND RN AT BEDSIDE. AMBU BAG AT HEAD OF BED.
--- NOTE | 2021-02-02 18:00 | NUR ---
RN NOTES TLC INSERTION AND BRONCHOSCOPY DONE AT THE BEDSIDE BY DR SUN, PT TOLERATED WELL, ON LEVO AT .5 MCG/KG/MIN RUNNING FOR BP SUPPORT, NO COMPLICATION NOTED, WILL ENDORSE TO TORCH SOLDERER NURSE FOR CONTINUITY OF CARE
[2021-02-02] MEDS: PROPOFOL 10MG/ML 50ML 50 ML IV PRN (18:07)
--- NOTE | 2021-02-02 19:00 | NUR ---
Received patient orally intubated,non responsive(was on Propofol post intubation,off at this time),not in any respiratory distress,breathing non labored. No cough/no gag reflex even with suctioning,no response,no movement noted on all extremities. Off Propofol drip,on Levophed drip for BP support.Triple lumen cath.via right IJ, all ports with good blood return, NGT clamped + placement confirmed by auscultation. multiple wounds of both lower extremities,heels,feet., + sacral pressure injury.
[2021-02-02 19:08] LABS: CALCIUM, SERUM 7.6 mg/dL (8.5-10.1); CREATININE 0.9 mg/dL (0.6-1.3); POTASSIUM 3.5 mmol/L (3.5-5.1)
--- NOTE | 2021-02-02 19:15 | NUR ---
RN NOTES DR SUN NOTIFED REGARDING CHEST X -RAY RESULTS
--- NOTE | 2021-02-02 19:45 | NUR ---
OET pulled back by 1 cm. by RT (as recommended by radiologist based on the chest x-ray post intubation).
--- NOTE | 2021-02-02 19:45 | NUR ---
PULL BACK ETT FROM 25 CM TO 24 CM PER MD'S ORDER. BARI COPE NOTIFIED.
[2021-02-02] MEDS ORDERED: VANCOMYCIN 1.25 GM in IV D5W 250 ML IV ONE (21:00)
[2021-02-02] MEDS ORDERED: MEROPENEM 500 MG in IV NS 0.9% 50 ML IV SCH (21:00)
[2021-02-02] MEDS: POTASSIUM CL. PREMIX PERIPHER. 50 ML IV SCH ×3 (21:09→23:07)
[2021-02-02] MEDS: TAMSULOSIN 0.4 MG CAP.SR.24H PO SCH (21:57)
[2021-02-02] MEDS: MONTELUKAST SODIUM (10MG) 10 MG TABLET PO SCH (21:57)
[2021-02-02] MEDS: MIRTAZAPINE 15 MG TABLET PO SCH (21:57)
[2021-02-02] MEDS: ATORVASTATIN 40 MG TABLET PO SCH (21:58)
[2021-02-02] MEDS: MEROPENEM 1 G in IV NS 0.9% 100 ML IV SCH (22:28)
[2021-02-02] MEDS: NOREPINEPHRINE 32 MG in IV NS 0.9% 218 ML IV PRN (23:43)
[2021-02-03] VITALS (92 sets, daily range): BP systolic 80–117; BP diastolic 28–75
--- NOTE | 2021-02-03 | NUR ---
Still not on any sedation,a little responsive to deep pain/slight withdrawal to pain but still no purposeful movement. Still on Levophed drip for BP support
[2021-02-03] MEDS: POTASSIUM CL. PREMIX PERIPHER. 50 ML IV SCH (00:03)
[2021-02-03] MEDS: IPRATROPIUM NEB FS 0.5 MG/2.5 ML AMPUL.NEB NEB SCH ×4 (01:17→19:41)
[2021-02-03] MEDS ORDERED: NOREPINEPHRINE 8 MG in IV NS 0.9% 242 ML IV PRN (03:30)
--- NOTE | 2021-02-03 04:00 | NUR ---
Awake,alert,follows simple commands,not in any distress.
[2021-02-03 04:39] LABS: CALCIUM, SERUM 7.8 mg/dL (8.5-10.1); CREATININE 1.2 mg/dL (0.6-1.3); POTASSIUM 4.5 mmol/L (3.5-5.1)
--- NOTE | 2021-02-03 05:00 | NUR ---
Am care done,sacral decub,care,dressings changed,Leg/wound care done.
--- NOTE | 2021-02-03 07:10 | NUR ---
DENTAL APPLIANCE MECHANIC NOTES Received patient orally intubated on a vent, tolerating current setting, not in any respiratory distress, follow simple commands, breathing non labored. on Levophed drip for BP support.Triple lumen cath.via right IJ, all ports with good blood return, NGT clamped, safety measures maintained, will continue to monitor.
[2021-02-03] MEDS: MEROPENEM 1 G in IV NS 0.9% 100 ML IV SCH ×3 (07:41→22:10)
[2021-02-03] MEDS: BLOOD SUGAR DIAGNOSTIC 1 EACH STRIP IN SCH ×4 (07:42→21:26)
[2021-02-03] MEDS: ENSURE ENLIVE 237 ML LIQUID (VANILLA) PO SCH ×3 (08:00→16:56)
[2021-02-03] MEDS: PROPOFOL 10MG/ML 50ML 50 ML IV PRN ×3 (08:04→18:58)
[2021-02-03] MEDS: SPIRONOLACTONE 25 MG TABLET PO SCH (08:20)
[2021-02-03] MEDS: SUCRALFATE 1 G TABLET PO SCH ×4 (08:20→21:10)
[2021-02-03] MEDS: CHOLECALCIFEROL 1,000 UNIT TABLET (VIT D3) PO SCH (08:21)
[2021-02-03] MEDS: PANTOPRAZOLE 40 MG TABLET.DR PO SCH (08:21)
[2021-02-03] MEDS: ASCORBIC ACID 500 MG TABLET PO SCH (08:21)
[2021-02-03] MEDS: ASPIRIN EC 81 MG TABLET.DR PO SCH (08:21)
[2021-02-03] MEDS: THIAMINE HCL 100 MG TABLET PO SCH (08:21)
[2021-02-03] MEDS: ZINC SULFATE 220 MG CAPSULE PO SCH (08:21)
[2021-02-03] MEDS: VANCOMYCIN 1 GM in IV D5W 250 ML IV SCH ×2 (08:22→21:09)
[2021-02-03] MEDS: SERTRALINE HCL 50 MG TABLET PO SCH (08:22)
[2021-02-03] MEDS: NEOMY SULF/BACITRAC ZN/POLY 15 GM TUBE TP SCH (08:23)
[2021-02-03] MEDS: MUPIROCIN OINT 2% 22 GM TUBE NS SCH ×2 (08:23→21:13)
[2021-02-03] MEDS: THERAHONEY GEL 1.5 OZ TUBE TP SCH (08:24)
[2021-02-03] MEDS: Z GUARD REMEDY 2 OZ OINT TP SCH (08:24)
[2021-02-03] MEDS: CARVEDILOL 6.25 MG TABLET PO SCH ×2 (08:25→16:55)
[2021-02-03] MEDS ORDERED: HYDROCORTISONE SOD SUCCINATE 100 MG/2 ML VIAL IV SCH (08:30)
[2021-02-03] MEDS: HYDROCORTISONE SOD SUCCINATE 100 MG/2 ML VIAL IV SCH ×3 (08:47→21:10)
[2021-02-03] MEDS ORDERED: LIDOCAINE 5% OINT 35.44 GM TUBE TP ONE (09:00)
[2021-02-03] MEDS: FLUTICASONE/VILANTEROL 1 EACH BLST.W.DEV IH SCH (09:00)
[2021-02-03] MEDS ORDERED: LIDOCAINE 2% JEL UROJET 10 ML MM ONE (10:00)
[2021-02-03 10:14] LABS: ABG BASE EXCESS 1.4 mmol/L; ABG OXYGEN SATURATION 97.4 % (92.0-98.5); ABG PCO2 36.2 mmHg (35.0-45.0); ABG PH 7.459 (7.350-7.450); ABG PO2 94.8 mmHg (75.0-100.0); MetHb 0.3 % (0.0-1.5); O2Hb 97.1 % (94.0-97.0); SITE, ABG Right Brachial
--- NOTE | 2021-02-03 11:30 | NUR ---
RT BRONCHOSCOPY DONE AT BEDSIDE WITH DR. TALAVERA AND DR. SUN. PT TOLERATED PROCEDURE WELL. NO COMPLICATIONS NOTED. RTS AND RN AT BEDSIDE. AMBU BAG AT HEAD OF BED.
--- NOTE | 2021-02-03 12:00 | NUR ---
AUDIT SPEC NOTES DR. SNU AND DR. TALAVERA AT BEDSIDE, VSS, WLL DO BRONCHOSCOPY, DR. SUN ORDERED 50 MG OF ROCORONIUM, ORDERS MADE AND CARRIED OUT. WILL CONTINUE TO MONITOR.
[2021-02-03] MEDS ORDERED: ROCURONIUM BROMIDE 50 MG/5 ML IV ONE ×2 (12:30→15:41)
--- NOTE | 2021-02-03 12:42 | NUR ---
SPRING TACKER NOTES S/P BRONCHOSCOPY, VSS, TOLERATED THE PROCEDURE. WILL CONTINUE TO MONITOR.
[2021-02-03] MEDS: NOREPINEPHRINE 32 MG in IV NS 0.9% 218 ML IV PRN (14:27)
--- NOTE | 2021-02-03 15:07 | NUR ---
Greenhouse Worker note: student services advisor follow up to provide resources and administer PHQ-9. Per BARI Healy, patient is currently intubated and lethargic. SS will continue to coordinate with nursing, and follow up at a later time.
[2021-02-03] MEDS ORDERED: FEE EMEERGENCY 1 MIN EA MC ONE (15:41)
[2021-02-03] MEDS ORDERED: ETOMIDATE 2 MG/ML VIAL IV ONE (15:41)
[2021-02-03] MEDS: RIVAROXABAN 10 MG TABLET PO SCH (16:55)
--- NOTE | 2021-02-03 19:14 | NUR ---
AUTHOR NOTES Patient orally intubated on a vent, tolerating current setting, sedated on propofol @15 mcg/kg/min, not in any respiratory distress noted throughout the shift, On Levophed drip for BP support.Triple lumen cath.via right IJ, all ports with good blood return, NGT clamped, safety measures maintained, endorsed to night warehouse manager nurse for gary.
--- NOTE | 2021-02-03 19:34 | NUR ---
COMPUTERIZED TABLE CUTTER OPENING NOTES: Rec'd pt in bed intubated 7.5/24cm at the lip and sedated. Tolerating vent settings well. No resp distress noted. Left NGT in place, clamped. NPO dx. Left chest wall pacemaker noted. Right IJ TLC and left wrist #22 patent and flushed w/ Levo infusing at 0.3mcg/kg/min and Diprivan infusing at 15mcg/kg/min. Bilateral soft wrist restraints in place. Goel catheter in place patent and draining urine via gravity. Safety measures in place. Will continue to monitor.
--- NOTE | 2021-02-03 19:41 | NUR ---
RT Pt received orally intubated on mechanical ventilation with noted settings. Vent is plugged into red outlet with BVM by bedside. Equal bilateral breath sounds and chest rise noted. No SOB or respiratory distress noted. Addendum: 02/03/21 at 2033 by VALENTINE WYATT RT Amended: Links added.
[2021-02-03] MEDS: ATORVASTATIN 40 MG TABLET PO SCH (21:10)
[2021-02-03] MEDS: MONTELUKAST SODIUM (10MG) 10 MG TABLET PO SCH (21:10)
[2021-02-03] MEDS: TAMSULOSIN 0.4 MG CAP.SR.24H PO SCH (21:10)
[2021-02-03] MEDS: MIRTAZAPINE 15 MG TABLET PO SCH (21:10)
[2021-02-03] MEDS: INSULIN REGULAR, HUMAN 100 UNIT/ML 3 ML VIAL SQ PRN (21:26)
[2021-02-04] VITALS (93 sets, daily range): BP systolic 82–150; BP diastolic 41–80
[2021-02-04] MEDS: IPRATROPIUM NEB FS 0.5 MG/2.5 ML AMPUL.NEB NEB SCH ×4 (01:24→19:26)
[2021-02-04] MEDS: PROPOFOL 10MG/ML 50ML 50 ML IV PRN ×3 (03:15→20:54)
[2021-02-04 04:59] LABS: BASOPHILS % (AUTO) 0.1 % (0.0-2.0); HEMATOCRIT 28 % (39-51); HEMOGLOBIN 8.9 g/dL (13.5-17.5); LYMPHOCYTES # (AUTO) 0.3 /CMM (0.8-4.8); LYMPHOCYTES % (AUTO) 2.3 % (20.0-44.0); MEAN CORPUSCULAR HGB CONC 32 g/dl (31.0-36.0); MEAN CORPUSCULAR VOLUME 83 fL (80-96); MONOCYTES # (AUTO) 0.4 /CMM (0.1-1.30); MONOCYTES % (AUTO) 2.9 % (2.0-12.0); NEUTROPHILS # (AUTO) 11.9 /CMM (1.8-8.9); NEUTROPHILS % (AUTO) 94.7 % (43.0-81.0); PLATELET COUNT (AUTO) 246 /CMM (150-450); RED BLOOD CELL COUNT(AUTO) 3.36 MIL/uL (4.5-6.0); WHITE BLOOD COUNT (AUTO) 12.6 K/uL (4.3-11.0)
[2021-02-04 05:27] LABS: CALCIUM, SERUM 7.4 mg/dL (8.5-10.1); CREATININE 1.1 mg/dL (0.6-1.3); MAGNESIUM 1.8 mg/dL (1.8-2.4); PHOSPHORUS 3.9 mg/dL (2.5-4.9); POTASSIUM 3.6 mmol/L (3.5-5.1)
[2021-02-04] MEDS: MEROPENEM 1 G in IV NS 0.9% 100 ML IV SCH ×3 (05:30→21:31)
[2021-02-04] MEDS: HYDROCORTISONE SOD SUCCINATE 100 MG/2 ML VIAL IV SCH (05:30)
--- NOTE | 2021-02-04 07:00 | NUR ---
RN NOTES RECEIVED PT ON BED, INTUBATED, SEDATED ON DIPRIVAN AT 15MCG/KG/MIN, TOLERATING VENT SETTING WELL , O2 SAT WNL, ON TELS V PACING , HR IN 60'S , L NGT CLAMPED , PT IS NPO , SAINI DRANING TO GRAVITY, R IJ TLC SITE CLEAN, DRY AND INTACT, LEVO AT .2 MCG/KG/MIN RUNNING FOR BP SUPPORT, SR UP x3, CALL LIGHT WITHIN EASY REACH, BED LOCKED AND IN LOWEST POSITION, CONTINUE TO MONITOR .
[2021-02-04] MEDS: ENSURE ENLIVE 237 ML LIQUID (VANILLA) PO SCH ×3 (08:00→16:53)
[2021-02-04] MEDS: SUCRALFATE 1 G TABLET PO SCH ×4 (08:29→21:15)
[2021-02-04] MEDS: THIAMINE HCL 100 MG TABLET PO SCH (08:29)
[2021-02-04] MEDS: ZINC SULFATE 220 MG CAPSULE PO SCH (08:29)
[2021-02-04] MEDS: CHOLECALCIFEROL 1,000 UNIT TABLET (VIT D3) PO SCH (08:30)
[2021-02-04] MEDS: ASPIRIN EC 81 MG TABLET.DR PO SCH (08:30)
[2021-02-04] MEDS: ASCORBIC ACID 500 MG TABLET PO SCH (08:30)
[2021-02-04] MEDS: SERTRALINE HCL 50 MG TABLET PO SCH (08:30)
[2021-02-04] MEDS: PANTOPRAZOLE 40 MG TABLET.DR PO SCH (08:31)
[2021-02-04] MEDS: BLOOD SUGAR DIAGNOSTIC 1 EACH STRIP IN SCH ×4 (08:31→21:30)
[2021-02-04] MEDS: MUPIROCIN OINT 2% 22 GM TUBE NS SCH ×2 (08:35→21:15)
[2021-02-04] MEDS: FLUTICASONE/VILANTEROL 1 EACH BLST.W.DEV IH SCH (08:35)
[2021-02-04] MEDS: NEOMY SULF/BACITRAC ZN/POLY 15 GM TUBE TP SCH (08:42)
[2021-02-04] MEDS: THERAHONEY GEL 1.5 OZ TUBE TP SCH (08:43)
[2021-02-04] MEDS: Z GUARD REMEDY 2 OZ OINT TP SCH (08:43)
[2021-02-04] MEDS: VANCOMYCIN 1 GM in IV D5W 250 ML IV SCH (08:44)
--- NOTE | 2021-02-04 12:00 | NUR ---
RN NOTES ET TUBE CARE DONE, BP STABLE, CONTINUE TO MONITOR
[2021-02-04] MEDS: NOREPINEPHRINE 8 MG in IV NS 0.9% 242 ML IV PRN (15:34)
[2021-02-04] MEDS: RIVAROXABAN 10 MG TABLET PO SCH (16:56)
[2021-02-04] MEDS: INSULIN REGULAR, HUMAN 100 UNIT/ML 3 ML VIAL SQ PRN ×2 (17:25→21:29)
--- NOTE | 2021-02-04 18:00 | NUR ---
RN NOTES PT REMAINS INTUBATED AND SEDATED, DIPRIVAN AT 15MCG/KG/MIN RUNNING, LEVO AT .1 MCG/KG/MIN FOR BP SUPPORT, ON TELE V PACING HR IN 60'S , SR UP x3, CALL LIGHT WITHIN EASY REACH, BED LOCKED AND IN LOWEST POSITION, WILL ENDOSE TO AUTOMATIC LATHE TENDER NURSE FOR CONTINUITY OF CARE .
--- NOTE | 2021-02-04 18:12 | NUR ---
RT END OF THE SHIFT REPORT, PT. 75 Y OLD MALE REC. IN ICU ORALLY INTUBATED ETT # 7.5 @ 24 CM LIP LINE ON VENT WITH NOTED SETTINGS, ALARMS ARE SET AND FUNCTIONAL, EQUAL CHEST RISE NOTED, VENT PLUGGED INTO RED OUTLET, AMBU BAG REMAIN AT THE BEDSIDE. B/S RALES AND SUCTIONED FOR SMALL AMOUNT OF REDDISH SECRETIONS, BUT CLEARED OUT T/O DAY HME CHANGED, GASTROENTEROLOGY TEACHER DONE, HHN GIVEN INLINE Q6 YOU. WELL AND NO DISTRESS NOTED. NO ABG NEEDED PER DR. HOUSER PT. REMAIN STABLE AND REPORT WILL PASS TO PM SHIFT. Addendum: 02/04/21 at 1817 by SANDER TREVINO RT Amended: Links added.
--- NOTE | 2021-02-04 20:00 | NUR ---
RN NOTE RECEIVED PT IN BED SEDATED, PT INTUBATED TOLERATING VENT SETTING WELL SATING 99%, PT ON DIPRIVAN RUNNING AT 15MCG/KG AND LEVO RUNNING AT 0.1 MCG/KG. PT HAS NG TUBE CLAMPED.SAFETY MEASURES IN PLACE.
--- NOTE | 2021-02-04 21:29 | NUR ---
INSULIN 2 UNIT NOT GIVEN, PT IS NPO PER DR MORALES IS OK TO HOLD.
[2021-02-04] MEDS: MIRTAZAPINE 15 MG TABLET PO SCH (21:31)
[2021-02-04] MEDS: MONTELUKAST SODIUM (10MG) 10 MG TABLET PO SCH (21:31)
[2021-02-04] MEDS: TAMSULOSIN 0.4 MG CAP.SR.24H PO SCH (21:31)
[2021-02-05] VITALS (95 sets, daily range): BP systolic 79–116; BP diastolic 44–73
[2021-02-05] MEDS: IPRATROPIUM NEB FS 0.5 MG/2.5 ML AMPUL.NEB NEB SCH ×4 (01:09→20:00)
[2021-02-05 04:45] LABS: HEMATOCRIT 29 % (39-51); HEMOGLOBIN 8.9 g/dL (13.5-17.5); LYMPHOCYTES # (AUTO) 0.3 /CMM (0.8-4.8); LYMPHOCYTES % (AUTO) 2.1 % (20.0-44.0); MEAN CORPUSCULAR HGB CONC 31 g/dl (31.0-36.0); MEAN CORPUSCULAR VOLUME 83 fL (80-96); MONOCYTES # (AUTO) 0.5 /CMM (0.1-1.30); NEUTROPHILS # (AUTO) 15.6 /CMM (1.8-8.9); NEUTROPHILS % (AUTO) 94.9 % (43.0-81.0); PLATELET COUNT (AUTO) 263 /CMM (150-450); RED BLOOD CELL COUNT(AUTO) 3.44 MIL/uL (4.5-6.0); WHITE BLOOD COUNT (AUTO) 16.4 K/uL (4.3-11.0)
[2021-02-05 04:53] LABS: CALCIUM, SERUM 7.7 mg/dL (8.5-10.1); CREATININE 1.1 mg/dL (0.6-1.3); MAGNESIUM 1.9 mg/dL (1.8-2.4); PHOSPHORUS 4.3 mg/dL (2.5-4.9); POTASSIUM 3.6 mmol/L (3.5-5.1)
[2021-02-05] MEDS: PROPOFOL 10MG/ML 50ML 50 ML IV PRN ×3 (05:37→22:12)
[2021-02-05] MEDS: NOREPINEPHRINE 8 MG in IV NS 0.9% 242 ML IV PRN (06:01)
[2021-02-05] MEDS: MEROPENEM 1 G in IV NS 0.9% 100 ML IV SCH ×3 (06:02→21:53)
--- NOTE | 2021-02-05 07:22 | NUR ---
RN NOTE REPORT GIVEN TO ONCOMING SHIFT FOR SHARLENE.
[2021-02-05] MEDS: ENSURE ENLIVE 237 ML LIQUID (VANILLA) PO SCH ×3 (08:00→17:00)
--- NOTE | 2021-02-05 08:00 | NUR ---
RN NOTES RECEIVED PATIENT ETT /VENT SETTING FIO2-40, PEEP-O, NO ACUTE RESPIRATORY DISTRESS, VSS, SUCTION, MOUTH CARE DONE, RT WITH THE PATIENT AT THIS TIME. PATIENT TOLERATING SEDATION WELL, NG INTACT. DUE MEDICATION ADMINISTERED VIA NG TUBE, AND CLAMPED. BS-161MG/DL. INFUSING RIJ - LEVOPHED 0.1 MCG/KG/ HR, DIPRIVAN 15MCG/KG/HR, AND TKO 10 ML/HR INTACT. FLASHED, NEEDS ATTENDED AND ANTICIPATED., SAINI DRAINING LESS OUTPUT AT THIS TIME. ASIS TURN AND REPOSTION Q 2 HR. WILL MONITORING.
[2021-02-05 08:15] LABS: ABG BASE EXCESS 0.2 mmol/L; ABG OXYGEN SATURATION 98.5 % (92.0-98.5); ABG PCO2 38.6 mmHg (35.0-45.0); ABG PH 7.421 (7.350-7.450); ABG PO2 120.3 mmHg (75.0-100.0); AaDO2 120.5 mmHg; COHb 0.1 % (0.5-1.5); MetHb 0.1 % (0.0-1.5); O2Hb 98.3 % (94.0-97.0); SITE, ABG Right Brachial; VENT MODE, BG ac16 450 0 40%
[2021-02-05] MEDS: BLOOD SUGAR DIAGNOSTIC 1 EACH STRIP IN SCH ×4 (08:56→21:52)
[2021-02-05] MEDS: SERTRALINE HCL 50 MG TABLET PO SCH (08:57)
[2021-02-05] MEDS: CHOLECALCIFEROL 1,000 UNIT TABLET (VIT D3) PO SCH (08:57)
[2021-02-05] MEDS: ASPIRIN EC 81 MG TABLET.DR PO SCH (08:57)
[2021-02-05] MEDS: ASCORBIC ACID 500 MG TABLET PO SCH (08:57)
[2021-02-05] MEDS: PANTOPRAZOLE 40 MG TABLET.DR PO SCH (08:57)
[2021-02-05] MEDS: ZINC SULFATE 220 MG CAPSULE PO SCH (08:57)
[2021-02-05] MEDS: SUCRALFATE 1 G TABLET PO SCH ×4 (08:57→20:44)
[2021-02-05] MEDS: THIAMINE HCL 100 MG TABLET PO SCH (08:58)
[2021-02-05] MEDS: FLUTICASONE/VILANTEROL 1 EACH BLST.W.DEV IH SCH (08:58)
[2021-02-05] MEDS: MUPIROCIN OINT 2% 22 GM TUBE NS SCH ×2 (09:00→20:44)
[2021-02-05] MEDS: NEOMY SULF/BACITRAC ZN/POLY 15 GM TUBE TP SCH (09:00)
[2021-02-05] MEDS: THERAHONEY GEL 1.5 OZ TUBE TP SCH (09:01)
[2021-02-05] MEDS: Z GUARD REMEDY 2 OZ OINT TP SCH (09:01)
[2021-02-05] MEDS: INSULIN REGULAR, HUMAN 100 UNIT/ML 3 ML VIAL SQ PRN ×4 (09:03→22:01)
[2021-02-05] MEDS: VANCOMYCIN 0.75 GM in IV D5W 250 ML IV SCH ×2 (09:09→20:44)
--- NOTE | 2021-02-05 10:09 | NUR ---
rn notes get to order from enrichment director stop Patricrivan sedation for weaning , hr-60, fio2-40%, peep-0. Rt aware of.
[2021-02-05] MEDS ORDERED: BUMETANIDE INJ 0.25 MG/ML VIAL IV ONE ×2 (11:30→13:00)
--- NOTE | 2021-02-05 11:30 | NUR ---
RN NOTES UA SPECIMEN COLLECTED FROM CATHETER PORT, CALLED LAB PATTERN CHAIN MAKER SUPERVISOR.
--- NOTE | 2021-02-05 13:16 | NUR ---
RN NOTES PATIENT AWAKE, CALM AND COOPERATIVE, TOLERATING EET WELL. NO ACUTE RESPIRATORY DISTRESS, SCHEDULED MEDICATION ADMINISTERED, VIA NGT, KEEP HOB ELEVATED FOR ASPIRATION PRECAUTION. WILL MONITORING.
--- NOTE | 2021-02-05 15:53 | NUR ---
rn notes patient moderate irritable at this time restarted Diprivan 5mcg/kg/hr on RIJ line intact. will monitoring.
[2021-02-05] MEDS: RIVAROXABAN 10 MG TABLET PO SCH (17:24)
--- NOTE | 2021-02-05 18:30 | NUR ---
RN NOTES PM ACRE DONE, SUCTION, MOUTH CARE, DUE MEDICATION ADMINISTERED, NGT INTACT, INFUSING DIPRIVAN 20MCG/KG/HR, RESTARTED LEVOPHED 0.06MCG/KG/HR, AND TKO 10ML/HR ON RIJ LINE INTACT. SAINI DRAINING LIGHT YELLOW OUTPUT. ASSIST TURN AND REPOSTION Q 2 HR. ENDORSED ONCOMING NURSE FOLLOW PLAN OF CARE.
--- NOTE | 2021-02-05 19:30 | NUR ---
RN OPENING NOTES RECD PT IN BED, RESTING. TRACH TO VENT.ORALLY INTUBATED. 7.03/02 AC 16 TV 450 FIO2 40% PEEP 0. ON TELE MONITOR PT PRESENTS WITH VPACING, HEART RATE 60. PT HAS PACEMAKER. NG TUBE. 0 RESIDUAL. AUSCULTATED FOR PLACEMENT, FLUSHED. PT HAS IV SITE RIGHT INTERNAL JUGULAR FLUSHED ASEPTICALLY. PT REMAINS WITH SOFT BILATERAL WRIST RESTRAINTS. SKIN AND CIRCULATION CHECKED. PT HAS MULTIPLE WOUNDS NOTED. PT HAS SAINI CATH DRAINING VIA GRAVITY. SAFETY MEASURES IN PLACE. HOB ELEVATED SIDE RAILS UP X2 BED LOCKED IN LOWEST POSITION WILL CONTINUE TO MONITOR CLOSELY FOR CHANGE OF CONDITION.
--- NOTE | 2021-02-05 19:35 | NUR ---
RN NOTE PT HAS DIPRIVAN RUNNING AT 20MCG/KG/HR TOLERATING WELL, PT APPEARS COMFORTABLE. PT ALSO ON LEVOPHED 0.06 MCG/KG/MIN BP WNL WILL TITRATE ORDERED.
[2021-02-05] MEDS: MONTELUKAST SODIUM (10MG) 10 MG TABLET PO SCH (21:53)
[2021-02-05] MEDS: MIRTAZAPINE 15 MG TABLET PO SCH (21:53)
[2021-02-05] MEDS: TAMSULOSIN 0.4 MG CAP.SR.24H PO SCH (21:53)
[2021-02-06] VITALS (93 sets, daily range): BP systolic 86–120; BP diastolic 43–70
[2021-02-06] MEDS: IPRATROPIUM NEB FS 0.5 MG/2.5 ML AMPUL.NEB NEB SCH ×4 (01:06→19:27)
[2021-02-06 04:45] LABS: BASOPHILS % (AUTO) 0.4 % (0.0-2.0); EOSINOPHILS % (AUTO) 0.1 % (0.0-6.0); HEMATOCRIT 25 % (39-51); HEMOGLOBIN 8.1 g/dL (13.5-17.5); LYMPHOCYTES # (AUTO) 0.4 /CMM (0.8-4.8); LYMPHOCYTES % (AUTO) 3.7 % (20.0-44.0); MEAN CORPUSCULAR HGB CONC 32 g/dl (31.0-36.0); MEAN CORPUSCULAR VOLUME 82 fL (80-96); MONOCYTES # (AUTO) 0.3 /CMM (0.1-1.30); NEUTROPHILS # (AUTO) 9.3 /CMM (1.8-8.9); NEUTROPHILS % (AUTO) 92.8 % (43.0-81.0); PLATELET COUNT (AUTO) 157 /CMM (150-450); RED BLOOD CELL COUNT(AUTO) 3.08 MIL/uL (4.5-6.0)
[2021-02-06 05:01] LABS: CALCIUM, SERUM 7.2 mg/dL (8.5-10.1); CREATININE 0.9 mg/dL (0.6-1.3); MAGNESIUM 1.6 mg/dL (1.8-2.4); PHOSPHORUS 2.9 mg/dL (2.5-4.9)
[2021-02-06] MEDS ORDERED: POTASSIUM CHLORIDE 20 MEQ POWDER PACKET GT SCH ×2 (05:30→10:30)
[2021-02-06] MEDS: PROPOFOL 10MG/ML 50ML 50 ML IV PRN (05:50)
--- NOTE | 2021-02-06 05:55 | NUR ---
RN NOTE LAB RESULT OF POTASSIUM 2.0 NOTIFIED ATM SERVICER ANDREW PLASCENCIA, ORDERS FOR 40 MEQ VIA NG TUBE AND 40 MEQ IV PIGGYBACK, FOR 80 MEQ TOTALS
[2021-02-06] MEDS: POTASSIUM CL. PREMIX PERIPHER. 50 ML IV SCH ×4 (06:04→09:26)
[2021-02-06] MEDS: MEROPENEM 1 G in IV NS 0.9% 100 ML IV SCH ×3 (06:11→21:05)
--- NOTE | 2021-02-06 07:00 | NUR ---
RN NOTES RECEIVED PT ON BED , INTUBATED , SEDATED , ON DIPRIVAN AT 10MCG/KG/MIN, RESPONDS TO PAINFUL STIMULI , TOLERATING VENT SETTING WELL, NO DISTRESS NOTED, ON TELE MONITOR PT PRESENTS WITH VPACING, HEART RATE 60. PT HAS PACEMAKER. NG TUBE CLAMPED, AUSCULTATED FOR PLACEMENT, FLUSHED. LEFT NECK TLC SITE CLEAN , DRY AND INTACT, PT REMAINS WITH SOFT BILATERAL WRIST RESTRAINTS. SKIN AND CIRCULATION CHECKED. PT HAS MULTIPLE WOUNDS NOTED. PT HAS SAINI CATH DRAINING VIA GRAVITY. SAFETY MEASURES IN PLACE. HOB ELEVATED SIDE RAILS UP X3, BED LOCKED AND IN LOWEST POSITION, WILL CONTINUE TO MONITOR .
--- NOTE | 2021-02-06 07:16 | NUR ---
RN CLOSING NOTE NO SIGNIFICANT CHANGES IN PT CONDITION. STILL REMAINS ON VENT WITH HEART RATE VPACING HR OF 60. PM/AM CARE ORAL CARE WOUND TX BED BATH DONE ORDERED. STILL REMAINS ON DIPRIVAN AT 10MCG/KG/HR AND LEVOPHED O.O4 MCG/KG/MIN AND 1ST BAG OF POTASSIUM RUNNING. NGT CLAMPED. NPO. RESTRAINTS STILL ON. SAFETY MEASURES IN PLACE. HOB ELEVATED, SIDE RAILS UP X2 BED LOCKED IN LOWEST POSITION WITH BED ALARM ON. REPORT GIVEN TO DAY SHIFT NURSE FOR CONTINUATION OF CARE.
[2021-02-06] MEDS: BLOOD SUGAR DIAGNOSTIC 1 EACH STRIP IN SCH ×4 (07:44→21:04)
[2021-02-06] MEDS: ENSURE ENLIVE 237 ML LIQUID (VANILLA) PO SCH ×2 (08:00→10:59)
[2021-02-06] MEDS: SUCRALFATE 1 G TABLET PO SCH ×4 (08:25→21:07)
[2021-02-06] MEDS: ZINC SULFATE 220 MG CAPSULE PO SCH (08:25)
[2021-02-06] MEDS: ASCORBIC ACID 500 MG TABLET PO SCH (08:25)
[2021-02-06] MEDS: PANTOPRAZOLE 40 MG TABLET.DR PO SCH (08:25)
[2021-02-06] MEDS: CHOLECALCIFEROL 1,000 UNIT TABLET (VIT D3) PO SCH (08:25)
[2021-02-06] MEDS: ASPIRIN EC 81 MG TABLET.DR PO SCH (08:25)
[2021-02-06] MEDS: THIAMINE HCL 100 MG TABLET PO SCH (08:25)
[2021-02-06] MEDS: SERTRALINE HCL 50 MG TABLET PO SCH (08:25)
[2021-02-06] MEDS: NEOMY SULF/BACITRAC ZN/POLY 15 GM TUBE TP SCH (08:26)
[2021-02-06] MEDS: MUPIROCIN OINT 2% 22 GM TUBE NS SCH ×2 (08:26→21:08)
[2021-02-06] MEDS: FLUTICASONE/VILANTEROL 1 EACH BLST.W.DEV IH SCH (08:26)
[2021-02-06] MEDS: THERAHONEY GEL 1.5 OZ TUBE TP SCH (08:27)
[2021-02-06] MEDS: Z GUARD REMEDY 2 OZ OINT TP SCH (08:27)
[2021-02-06] MEDS: VANCOMYCIN 0.75 GM in IV D5W 250 ML IV SCH ×2 (08:30→20:46)
[2021-02-06] MEDS: Magnesium 1GM/D5W 100ML PREMIX 100 ML IV SCH ×2 (09:46→10:57)
--- NOTE | 2021-02-06 09:53 | NUR ---
RT PER DR TALAVERA PATIENT PLACED ON SIMV WEANING TRIAL. PATIENT AWAKE, RESPONDING TO COMMANDS. WILL CONT TO MONITOR. VENT SETTINGS + ALARMS CHECKED + AUDIBLE. Addendum: 02/06/21 at 0954 by REUBEN REYNA RT Amended: Links added.
[2021-02-06] MEDS: SPIRONOLACTONE 25 MG TABLET PO SCH (10:10)
[2021-02-06 11:03] LABS: ABG BASE EXCESS 4.1 mmol/L; ABG OXYGEN SATURATION 98.5 % (92.0-98.5); ABG PCO2 35.3 mmHg (35.0-45.0); ABG PH 7.506 (7.350-7.450); AaDO2 128.6 mmHg; COHb 0.3 % (0.5-1.5); MetHb 0.3 % (0.0-1.5); O2Hb 97.9 % (94.0-97.0); PEEP,BG 5 cm H2O; SITE, ABG Right Brachial; VENT MODE, BG SIMV/ PS 15; VT, ABG 450 mL
[2021-02-06] MEDS: NOREPINEPHRINE 8 MG in IV NS 0.9% 242 ML IV PRN (11:44)
[2021-02-06] MEDS: MICAFUNGIN SODIUM 100 MG in IV NS 0.9% 100 ML IV SCH (11:58)
--- NOTE | 2021-02-06 13:00 | NUR ---
RN NOTES PT TOLERATING SIMV MODE WELL, NO DISTRESS NOTED, CONTINUE TO MONITOR .
[2021-02-06] MEDS: RIVAROXABAN 10 MG TABLET PO SCH (16:13)
[2021-02-06] MEDS: PROSOURCE / PROSTAT (PYXIS) 30 ML UDC GT SCH (16:14)
--- NOTE | 2021-02-06 17:41 | NUR ---
RT PER DR TALAVERA PATIENT TO REMAIN ON SIMV MODE LONG PATIENT TOLERATES. PLACE BACK ON AC MODE IF HE BECOMES DISTRESSED. Addendum: 02/06/21 at 1743 by REUBEN REYNA RT Amended: Links added.
--- NOTE | 2021-02-06 18:00 | NUR ---
RN NOTES PT REMANIS INTUBATED , ALERT/ FOLLOWS COMMAND , V- PACING ON TELE, LEVO OFF ,BP STABLE, NO DISTRESS NOTED ON THIS SHIFT, SR UP x3, CALL LIGHT WITHIN EASY REACH, BED LOCKED AND IN LOWEST POSITION, WILL ENDORSE TO LINE PAINTING MACHINE OPERATOR NURSE FOR CONTINUITY OF CARE .
--- NOTE | 2021-02-06 19:30 | NUR ---
RN OPENING NOTE RECD PT IN BED, RESTING. TRACH TO VENT.ORALLY INTUBATED. AWAKE, FOLLOWS COMMANDS. PT ON SETTINGS SIMV 14 TV 450 FIO2 40% PEEP 0. O2 SATURATION 99% ON TELE MONITOR PT PRESENTS WITH VPACING, HEART RATE 60. PT HAS LEFT CHEST WALL PACEMAKER. NG TUBE. CLAMPED, PT NPO DX 0 RESIDUAL. AUSCULTATED FOR PLACEMENT, FLUSHED. PT HAS IV SITE RIGHT INTERNAL JUGULAR FLUSHED ASEPTICALLY. PT REMAINS WITH SOFT BILATERAL WRIST RESTRAINTS. SKIN AND CIRCULATION CHECKED. PT HAS MULTIPLE WOUNDS NOTED. PT HAS SAINI CATH DRAINING VIA GRAVITY. SAFETY MEASURES IN PLACE. HOB ELEVATED SIDE RAILS UP X2 BED LOCKED IN LOWEST POSITION WILL CONTINUE TO MONITOR CLOSELY FOR CHANGE OF CONDITION.
--- NOTE | 2021-02-06 20:02 | NUR ---
RECEIVED PT INTUBATED ON VENT. PT IS AWAKE NO DISTRESS, TOLERATING SIMV MODE. 7.5 ETT SECURED AT 25CM AT THE LIP. SX'D SML AMT OF THICK ORELLANA SECRETIONS. VENT ALARMS SET AND AUDIBLE. AMBU BAG AT BEDSIDE. VENT PLUGGED INTO RED OUTLET. CONTINUE [facility] VENT SUPPORT. Addendum: 02/06/21 at 2005 by MORGAN KEMP RT Amended: Links added.
[2021-02-06] MEDS: MONTELUKAST SODIUM (10MG) 10 MG TABLET PO SCH (21:07)
[2021-02-06] MEDS: TAMSULOSIN 0.4 MG CAP.SR.24H PO SCH (21:07)
[2021-02-06] MEDS: MIRTAZAPINE 15 MG TABLET PO SCH (21:07)
[2021-02-06] MEDS: INSULIN REGULAR, HUMAN 100 UNIT/ML 3 ML VIAL SQ PRN (21:58)
[2021-02-07] VITALS (59 sets, daily range): BP systolic 82–125; BP diastolic 38–64
[2021-02-07] MEDS: IPRATROPIUM NEB FS 0.5 MG/2.5 ML AMPUL.NEB NEB SCH ×5 (01:39→23:34)
[2021-02-07 04:50] LABS: CALCIUM, SERUM 7.4 mg/dL (8.5-10.1); CREATININE 0.9 mg/dL (0.6-1.3); POTASSIUM 3.6 mmol/L (3.5-5.1)
[2021-02-07] MEDS: MEROPENEM 1 G in IV NS 0.9% 100 ML IV SCH ×3 (05:24→21:15)
--- NOTE | 2021-02-07 06:48 | NUR ---
RN CLOSING NOTES NO SIGNIFICANT CHANGES IN PT CONDITION. SAME VENT SETTINGS. STILL WITH VPACING ON MONITOR. ORAL HYGIENE, BED BATH DONE. WOUND CARE DONE. PT STILL REMAINS ON RESTRAINTS. SAFETY MEASURES OBSERVED, HOB ELEVATED SIDE RAILS UP X2, BED LOCKED LOWEST POSITION WILL ENDORSE TO DAY SHIFT NURSE FOR CONTINUATION OF CARE
--- NOTE | 2021-02-07 07:00 | NUR ---
RN NOTES RECEIVED PT ON BED , INTUBATED , ALERT/ FOLLOWS COMMAND , ON SIMV MODE, TOLERATING VENT SETTING WELL, NO DISTRESS NOTED, ON TELE MONITOR PT PRESENTS WITH V-PACING, HEART RATE 60. PT HAS PACEMAKER. NG TUBE CLAMPED, AUSCULTATED FOR PLACEMENT, FLUSHED. LEFT NECK TLC SITE CLEAN , DRY AND INTACT, PT REMAINS WITH SOFT BILATERAL WRIST RESTRAINTS. SKIN AND CIRCULATION CHECKED. PT HAS MULTIPLE WOUNDS NOTED. PT HAS SAINI CATH DRAINING VIA GRAVITY. SAFETY MEASURES IN PLACE. HOB ELEVATED SIDE RAILS UP X3, BED LOCKED AND IN LOWEST POSITION, WILL CONTINUE TO MONITOR .
[2021-02-07] MEDS: BLOOD SUGAR DIAGNOSTIC 1 EACH STRIP IN SCH ×4 (07:51→21:27)
[2021-02-07] MEDS: ZINC SULFATE 220 MG CAPSULE PO SCH (08:19)
[2021-02-07] MEDS: ASCORBIC ACID 500 MG TABLET PO SCH (08:19)
[2021-02-07] MEDS: ASPIRIN EC 81 MG TABLET.DR PO SCH (08:20)
[2021-02-07] MEDS: SUCRALFATE 1 G TABLET PO SCH ×4 (08:20→21:13)
[2021-02-07] MEDS: PANTOPRAZOLE 40 MG TABLET.DR PO SCH (08:20)
[2021-02-07] MEDS: SERTRALINE HCL 50 MG TABLET PO SCH (08:20)
[2021-02-07] MEDS: SPIRONOLACTONE 25 MG TABLET PO SCH (08:20)
[2021-02-07] MEDS: FLUTICASONE/VILANTEROL 1 EACH BLST.W.DEV IH SCH (08:20)
[2021-02-07] MEDS: CHOLECALCIFEROL 1,000 UNIT TABLET (VIT D3) PO SCH (08:20)
[2021-02-07] MEDS: THIAMINE HCL 100 MG TABLET PO SCH (08:20)
[2021-02-07] MEDS: Z GUARD REMEDY 2 OZ OINT TP SCH (08:21)
[2021-02-07] MEDS: MUPIROCIN OINT 2% 22 GM TUBE NS SCH ×2 (08:21→21:14)
[2021-02-07] MEDS: NEOMY SULF/BACITRAC ZN/POLY 15 GM TUBE TP SCH (08:21)
[2021-02-07] MEDS: THERAHONEY GEL 1.5 OZ TUBE TP SCH (08:22)
[2021-02-07 08:51] LABS: ABG BASE EXCESS 3.3 mmol/L; ABG PCO2 37.3 mmHg (35.0-45.0); ABG PH 7.477 (7.350-7.450); ABG PO2 146.8 mmHg (75.0-100.0); AaDO2 95.5 mmHg; COHb 0.1 % (0.5-1.5); MetHb 0.2 % (0.0-1.5); O2Hb 98.7 % (94.0-97.0); SITE, ABG Right Brachial
[2021-02-07] MEDS: VANCOMYCIN 0.75 GM in IV D5W 250 ML IV SCH (09:00)
[2021-02-07] MEDS ORDERED: DC PROPOFOL WHEN EXTUBATED XX PRN (09:00)
[2021-02-07] MEDS: PROSOURCE / PROSTAT (PYXIS) 30 ML UDC GT SCH ×3 (09:12→16:29)
--- NOTE | 2021-02-07 09:20 | NUR ---
RN NOTES PT EXTUBATED PER MD ORDER , ON 5L O2 N/C , TOLERATING WELL, O2 SAT WNL, CONTINUE TO MONITOR.
--- NOTE | 2021-02-07 09:20 | NUR ---
RT PER DR BLAKE ORDERS PATIENT WAS EXTUBATED AND PLACED ON SUPPLEMENTAL O2 NASAL CANNULA 5L. PATIENT AWAKE, RESPONSIVE, NO DISTRESS AT THIS TIME. PATIENT HAS A WEAK NON PRODUCTIVE COUGH. WILL CONTINUE TO MONITOR CLOSELY. AMBU BAG AND VENTILATOR REMAIN STAND BY AT BEDSIDE. BARI LIU AWARE. Addendum: 02/07/21 at 0926 by REUBEN REYNA RT Amended: Links added.
[2021-02-07] MEDS: MICAFUNGIN SODIUM 100 MG in IV NS 0.9% 100 ML IV SCH (12:21)
[2021-02-07] MEDS: ACETYLCYSTEINE 20% SOLN 800 MG/4 ML VIAL NEB SCH ×2 (13:11→23:34)
--- NOTE | 2021-02-07 15:33 | NUR ---
RT PATIENT REQUIRING HFNC TO HELP MAINTAIN SATURATION AND PROVIDE FLOW TO HELP SECRETION MOBILITY. PATIENT PLACED ON 40L 100%. REQUIRES CONSTANT NT SUCTION. POSSIBLE REINTUBATION REQUIRED. Addendum: 02/07/21 at 1536 by REUBEN REYNA RT Amended: Links added.
--- NOTE | 2021-02-07 16:00 | NUR ---
RN NOTES PT TOLERATING HIGH FLOW O2 WELL , NT SUCTIONING DONE , MODERATED AMOUNT OF SECRETIONS SUCTIONED OUT. O2 SAT WNL, CONTINUE TO MONITOR.
[2021-02-07] MEDS: RIVAROXABAN 10 MG TABLET PO SCH (16:30)
--- NOTE | 2021-02-07 18:08 | NUR ---
RN NOTES PT REMANINS ON HIGH FLOW O2 , VSS STABLE, ORAL AND NT SUCTIONING DONE PRN , NO TF PER WEB SIZER YET , PT IS HIGH RISK FOR ASPIRATION . SR UP x3, CALL LIGHT WITHIN EASY REACH, BED LOCKED AND IN LOWEST POSITION, WILL ENDORSE TO GATHERING WORKER NURSE FOR CONTINUITY OF CARE .
--- NOTE | 2021-02-07 19:10 | NUR ---
RAIL CAR REPAIR CARMAN OPENING NOTES: Rec'd pt in bed, awake but nonverbal, following simple commands. On hi-flow NC 40LPM at 100%, tolerating well. Left chest wall pacemaker noted, v-pacing w/ BBB on tele monitor. NGT in place, clamped, pt NPO. RIJ TLC in place, patent and flushed. Dressing c/d/i. Goel catheter in place patent and draining urine via gravity. Safety measures in place. Will continue to monitor.
[2021-02-07] MEDS ORDERED: VANCOMYCIN 0.75 GM in IV D5W 250 ML IV SCH (21:00)
--- NOTE | 2021-02-07 21:09 | NUR ---
PARALEGAL NOTE: Spoke w/ transit operations supervisor pharmacist Jessy. Pt's vanco trough: 30, ok to hold 2100 dose of Vanco.
[2021-02-07] MEDS: MIRTAZAPINE 15 MG TABLET PO SCH (21:13)
[2021-02-07] MEDS: MONTELUKAST SODIUM (10MG) 10 MG TABLET PO SCH (21:14)
[2021-02-07] MEDS: TAMSULOSIN 0.4 MG CAP.SR.24H PO SCH (21:18)
[2021-02-07] MEDS: INSULIN REGULAR, HUMAN 100 UNIT/ML 3 ML VIAL SQ PRN (21:27)
[2021-02-08] VITALS (24 sets, daily range): BP systolic 89–111; BP diastolic 43–58
[2021-02-08 04:34] LABS: BASOPHILS % (AUTO) 0.1 % (0.0-2.0); EOSINOPHILS % (AUTO) 0.3 % (0.0-6.0); HEMATOCRIT 25 % (39-51); HEMOGLOBIN 8.1 g/dL (13.5-17.5); LYMPHOCYTES # (AUTO) 0.3 /CMM (0.8-4.8); MEAN CORPUSCULAR HGB CONC 33 g/dl (31.0-36.0); MEAN CORPUSCULAR VOLUME 82 fL (80-96); MONOCYTES # (AUTO) 0.3 /CMM (0.1-1.30); MONOCYTES % (AUTO) 3.2 % (2.0-12.0); NEUTROPHILS # (AUTO) 8.1 /CMM (1.8-8.9); NEUTROPHILS % (AUTO) 92.4 % (43.0-81.0); PLATELET COUNT (AUTO) 135 /CMM (150-450); RED BLOOD CELL COUNT(AUTO) 3.05 MIL/uL (4.5-6.0); WHITE BLOOD COUNT (AUTO) 8.8 K/uL (4.3-11.0)
[2021-02-08 04:41] LABS: CALCIUM, SERUM 7.6 mg/dL (8.5-10.1); CREATININE 0.8 mg/dL (0.6-1.3); MAGNESIUM 1.8 mg/dL (1.8-2.4); PHOSPHORUS 2.5 mg/dL (2.5-4.9); POTASSIUM 3.7 mmol/L (3.5-5.1)
[2021-02-08] MEDS: MEROPENEM 1 G in IV NS 0.9% 100 ML IV SCH ×3 (05:25→22:30)
--- NOTE | 2021-02-08 05:48 | NUR ---
BARTENDERS NOTE: RT titrated O2 down from 100% to 80%. O2 sat WNL, will continue to monitor.
--- NOTE | 2021-02-08 07:05 | NUR ---
WOUND CARE FOLLOW UP: PT SEEN FOR WOUND BED CHANGES TO SACRAL SCARRING WITH OPEN AREA, PRESENT ON ADMISSION (PREVIOUS STAGE 4 ULCER PER REPORT). WOUND BED CHANGES NOTED TO INCLUDE DISCOLORATION TO AREA WITH SOME SEROSANGUINOUS DRAINAGE, NO ODOR. CONCUR WITH CURRENT WOUND CARE ORDERS PER SURGICAL TEAM. PLATELET COUNT NOTED TO BE LOW AND PT NOTED TO HAVE MULTIPLE CO-MORBIDITIES INCLUDING ANEMIA. PT IS ON TESS ISOFLEX LOW AIRLOSS BED AND ALL SKIN PROTECTION MEASURES IN PLACE. DISCUSSED WITH NURSING STAFF. MD IN AGREEMENT WITH PLAN OF CARE.
[2021-02-08] MEDS: ACETYLCYSTEINE 20% SOLN 800 MG/4 ML VIAL NEB SCH (07:25)
[2021-02-08] MEDS: IPRATROPIUM NEB FS 0.5 MG/2.5 ML AMPUL.NEB NEB SCH ×3 (07:25→19:22)
[2021-02-08] MEDS: ALBUTEROL FS 2.5 MG/0.5 ML VIAL.NEB NEB PRN ×2 (07:25→11:19)
--- NOTE | 2021-02-08 07:30 | NUR ---
RN OPENING NOTES RECEIVED PATIENT AWAKE AND ORIENTED, OBEYS INSTRUCTIONS. ON HF NC 40L FIO2 80% AND NOT IN ANY RESPIRATORY DISTRESS. V PACING WITH BBB ON BEDSIDE MONITOR. NGT CLAMPED. RIJ TLC IN PLACE. SAINI DRAINING BY GRAVITY. SAFETY CHECKS IN PLACE. WILL CONTINUE TO MONITOR.
[2021-02-08] MEDS: BLOOD SUGAR DIAGNOSTIC 1 EACH STRIP IN SCH ×4 (08:42→21:15)
[2021-02-08] MEDS: MUPIROCIN OINT 2% 22 GM TUBE NS SCH ×2 (08:44→21:04)
[2021-02-08] MEDS: FLUTICASONE/VILANTEROL 1 EACH BLST.W.DEV IH SCH (08:44)
[2021-02-08] MEDS: PANTOPRAZOLE 40 MG TABLET.DR PO SCH (08:44)
[2021-02-08] MEDS: PROSOURCE / PROSTAT (PYXIS) 30 ML UDC GT SCH ×3 (08:44→16:13)
[2021-02-08 08:45] LABS: ABG BASE EXCESS 1.3 mmol/L; ABG OXYGEN SATURATION 95.4 % (92.0-98.5); ABG PCO2 35.8 mmHg (35.0-45.0); ABG PH 7.461 (7.350-7.450); ABG PO2 80.4 mmHg (75.0-100.0); AaDO2 199.7 mmHg; COHb 0.3 % (0.5-1.5); MetHb 0.8 % (0.0-1.5); O2Hb 94.4 % (94.0-97.0); SITE, ABG Right Brachial; VENT MODE, BG HFNC
[2021-02-08] MEDS: ASPIRIN EC 81 MG TABLET.DR PO SCH (08:45)
[2021-02-08] MEDS: NEOMY SULF/BACITRAC ZN/POLY 15 GM TUBE TP SCH (08:45)
[2021-02-08] MEDS: ASCORBIC ACID 500 MG TABLET PO SCH (08:45)
[2021-02-08] MEDS: Z GUARD REMEDY 2 OZ OINT TP SCH (08:46)
[2021-02-08] MEDS: THERAHONEY GEL 1.5 OZ TUBE TP SCH (08:46)
[2021-02-08] MEDS: SERTRALINE HCL 50 MG TABLET PO SCH (08:49)
[2021-02-08] MEDS: CHOLECALCIFEROL 1,000 UNIT TABLET (VIT D3) PO SCH (08:49)
[2021-02-08] MEDS: SUCRALFATE 1 G TABLET PO SCH ×4 (08:49→21:04)
[2021-02-08] MEDS: SPIRONOLACTONE 25 MG TABLET PO SCH (08:49)
[2021-02-08] MEDS: ZINC SULFATE 220 MG CAPSULE PO SCH (08:50)
[2021-02-08] MEDS: THIAMINE HCL 100 MG TABLET PO SCH (08:50)
[2021-02-08] MEDS: MICAFUNGIN SODIUM 100 MG in IV NS 0.9% 100 ML IV SCH (11:17)
[2021-02-08] MEDS: ACETYLCYSTEINE 10% SOLN 400 MG/4 ML VIAL NEB SCH ×2 (11:20→14:30)
--- NOTE | 2021-02-08 12:45 | NUR ---
RN NOTE WILL KEEP PATIENT COMPLETELY NPO EXCEPT ONLY FOR MEDS PER DR STOKES.
[2021-02-08] MEDS: RIVAROXABAN 10 MG TABLET PO SCH (16:12)
--- NOTE | 2021-02-08 18:39 | NUR ---
RN CLOSING NOTES PATIENT RESTING BUT ROUSABLE AND ORIENTED. ON HF NC 40L FIO2 45% AND NOT IN ANY RESPIRATORY DISTRESS. V PACING WITH BBB ON BEDSIDE MONITOR. NGT CLAMPED. RIJ TLC IN PLACE. SAINI DRAINED 350MLS. SAFETY CHECKS IN PLACE. WILL ENDORSE TO NIGHT RN FOR CONTINUITY OF CARE..
--- NOTE | 2021-02-08 19:14 | NUR ---
AIR AND MISSILE DEFENSE CREWMEMBER OPENING NOTES: Rec'd pt in bed, awake but nonverbal, following simple commands. On 6LPM nasal cannula, tolerating well. No resp distress noted at this time. Left chest wall pacemaker noted, v-pacing w/ BBB on tele monitor. NGT in place, clamped, pt NPO x. RIJ TLC in place, patent and flushed. Dressing c/d/i. Goel catheter in place patent and draining urine via gravity. No pain noted at this time. Safety measures in place. Will continue to monitor.
--- NOTE | 2021-02-08 19:36 | NUR ---
EVP STRATEGY NOTE: RT titrated O2 down to 4LPM. O2 sat WNL, will continue to monitor.
[2021-02-08] MEDS ORDERED: VANCOMYCIN 0.75 GM in IV D5W 250 ML IV SCH (21:00)
[2021-02-08] MEDS: TAMSULOSIN 0.4 MG CAP.SR.24H PO SCH (21:04)
[2021-02-08] MEDS: MONTELUKAST SODIUM (10MG) 10 MG TABLET PO SCH (21:04)
[2021-02-08] MEDS: MIRTAZAPINE 15 MG TABLET PO SCH (21:04)
[2021-02-08] MEDS: INSULIN REGULAR, HUMAN 100 UNIT/ML 3 ML VIAL SQ PRN (21:15)
[2021-02-09] VITALS (24 sets, daily range): BP systolic 96–114; BP diastolic 43–60
[2021-02-09] MEDS: ACETYLCYSTEINE 10% SOLN 400 MG/4 ML VIAL NEB SCH ×3 (00:32→14:39)
[2021-02-09] MEDS: IPRATROPIUM NEB FS 0.5 MG/2.5 ML AMPUL.NEB NEB SCH ×4 (01:45→19:19)
[2021-02-09 04:24] LABS: EOSINOPHILS % (AUTO) 1.3 % (0.0-6.0); HEMATOCRIT 26 % (39-51); HEMOGLOBIN 8.5 g/dL (13.5-17.5); LYMPHOCYTES # (AUTO) 0.4 /CMM (0.8-4.8); LYMPHOCYTES % (AUTO) 3.4 % (20.0-44.0); MEAN CORPUSCULAR HGB CONC 32 g/dl (31.0-36.0); MEAN CORPUSCULAR VOLUME 82 fL (80-96); MONOCYTES # (AUTO) 0.3 /CMM (0.1-1.30); MONOCYTES % (AUTO) 2.7 % (2.0-12.0); NEUTROPHILS # (AUTO) 9.8 /CMM (1.8-8.9); NEUTROPHILS % (AUTO) 92.6 % (43.0-81.0); PLATELET COUNT (AUTO) 169 /CMM (150-450); RED BLOOD CELL COUNT(AUTO) 3.21 MIL/uL (4.5-6.0); WHITE BLOOD COUNT (AUTO) 10.6 K/uL (4.3-11.0)
[2021-02-09 04:39] LABS: CALCIUM, SERUM 7.6 mg/dL (8.5-10.1); CREATININE 0.8 mg/dL (0.6-1.3); MAGNESIUM 1.7 mg/dL (1.8-2.4); PHOSPHORUS 2.5 mg/dL (2.5-4.9)
[2021-02-09 04:50] LABS: POTASSIUM 2.8 mmol/L (3.5-5.1)
[2021-02-09] MEDS: MEROPENEM 1 G in IV NS 0.9% 100 ML IV SCH ×3 (05:25→21:33)
--- NOTE | 2021-02-09 05:31 | NUR ---
RT NOTE PT TOLERATED NASAL CANNULA WELL T/O SHIFT. SPO2 > 92%. NO RESPIRATORY DISTRESS NOTED. HIGH FLOW NASAL CANNULA STANDBY.
[2021-02-09] MEDS ORDERED: POTASSIUM CHLORIDE 20 MEQ POWDER PACKET GT ONE (06:00)
--- NOTE | 2021-02-09 06:45 | NUR ---
COIL STRAPPER CLOSING NOTES: No acute changes noted throughout shift. Titrated pt's O2 down to 3LPM nasal cannula, O2 WNL throughout shift. Deep suctioned by RT as needed. NGT remains clamped. RIJ TLC intact and flushed. Kept clean/dry throughout shift. Safety measures in place. Will endorse to AM nurse for SHARLENE.
--- NOTE | 2021-02-09 07:27 | NUR ---
RN OPENING NOTES RECEIVED PATIENT ASLEEP BUT ROUSABLE AND ORIENTED, OBEYS INSTRUCTIONS. ON 3L NC SATURATING 99% AND NOT IN ANY RESPIRATORY DISTRESS. V PACING WITH BBB ON BEDSIDE MONITOR. NGT CLAMPED. RIJ TLC IN PLACE WITH N/S TKO ON FLOW. SAINI DRAINING BY GRAVITY. SAFETY CHECKS IN PLACE. WILL CONTINUE TO MONITOR.
[2021-02-09] MEDS: SUCRALFATE 1 G TABLET PO SCH ×4 (08:09→20:21)
[2021-02-09] MEDS: THIAMINE HCL 100 MG TABLET PO SCH (08:09)
[2021-02-09] MEDS: SPIRONOLACTONE 25 MG TABLET PO SCH (08:09)
[2021-02-09] MEDS: CHOLECALCIFEROL 1,000 UNIT TABLET (VIT D3) PO SCH (08:09)
[2021-02-09] MEDS: PANTOPRAZOLE 40 MG TABLET.DR PO SCH (08:09)
[2021-02-09] MEDS: SERTRALINE HCL 50 MG TABLET PO SCH (08:09)
[2021-02-09] MEDS: BLOOD SUGAR DIAGNOSTIC 1 EACH STRIP IN SCH ×4 (08:09→21:33)
[2021-02-09] MEDS: ZINC SULFATE 220 MG CAPSULE PO SCH (08:09)
[2021-02-09] MEDS: ASCORBIC ACID 500 MG TABLET PO SCH (08:10)
[2021-02-09] MEDS: FLUTICASONE/VILANTEROL 1 EACH BLST.W.DEV IH SCH (08:10)
[2021-02-09] MEDS: PROSOURCE / PROSTAT (PYXIS) 30 ML UDC GT SCH ×3 (08:10→17:00)
[2021-02-09] MEDS: ASPIRIN EC 81 MG TABLET.DR PO SCH (08:10)
[2021-02-09] MEDS: Z GUARD REMEDY 2 OZ OINT TP SCH (08:11)
[2021-02-09] MEDS: MUPIROCIN OINT 2% 22 GM TUBE NS SCH ×2 (08:11→20:22)
[2021-02-09] MEDS: NEOMY SULF/BACITRAC ZN/POLY 15 GM TUBE TP SCH (08:11)
[2021-02-09] MEDS: THERAHONEY GEL 1.5 OZ TUBE TP SCH (08:12)
[2021-02-09] MEDS: Magnesium 1GM/D5W 100ML PREMIX 100 ML IV SCH ×2 (08:56→10:06)
[2021-02-09] MEDS ORDERED: POTASSIUM CHLORIDE 20 MEQ POWDER PACKET NG SCH (09:00)
[2021-02-09] MEDS: MICAFUNGIN SODIUM 100 MG in IV NS 0.9% 100 ML IV SCH (11:19)
[2021-02-09] MEDS: RIVAROXABAN 10 MG TABLET PO SCH (17:01)
[2021-02-09] MEDS: JEVITY 1.2 CAL 1,000 ML BOTTLE GT PRN (17:02)
--- NOTE | 2021-02-09 19:16 | NUR ---
RN NOTE PATIENT STARTED ON JEVITY 1.2 AT 10 ML/HR PER DR STOKES. TO KEEP AT THIS RATE FOR 24HOURS AND REGULARLY CHECK IF TOLERATING. REMAINS AT 3L VIA NC AND NOT IN ANY RESPIRATORY DISTRESS. DRAINED 320MLS URINE. SAFETY CHECKS IN PLACE. ENDORSED TO NIGHT RN FOR CONTINUITY OF CARE..
--- NOTE | 2021-02-09 19:30 | NUR ---
RN NOTES Received patient in bed awake non verbal following simple commands. Breathing normal no s/s of resp distress noted continues on 3LPM via nasal cannula sating 94%. Tele monitor reading v pacing with BBB pt has left chest wall pace maker. NGT in place continues on Jevity 1.2 at 10cc/min tolerating well no residual noted at this time. RIJ in place flushed well. F/C cath intact draining well via gravity. All safety measures in place, call light within reach. will cont to monitor for gary.
[2021-02-09] MEDS: TAMSULOSIN 0.4 MG CAP.SR.24H PO SCH (21:32)
[2021-02-09] MEDS: MONTELUKAST SODIUM (10MG) 10 MG TABLET PO SCH (21:32)
[2021-02-09] MEDS: MIRTAZAPINE 15 MG TABLET PO SCH (21:32)
[2021-02-09] MEDS: INSULIN REGULAR, HUMAN 100 UNIT/ML 3 ML VIAL SQ PRN (22:04)
[2021-02-10] VITALS (33 sets, daily range): BP systolic 97–121; BP diastolic 23–64
[2021-02-10] MEDS: ACETYLCYSTEINE 10% SOLN 400 MG/4 ML VIAL NEB SCH ×3 (00:24→13:57)
[2021-02-10] MEDS: IPRATROPIUM NEB FS 0.5 MG/2.5 ML AMPUL.NEB NEB SCH ×4 (00:31→19:38)
[2021-02-10] MEDS: ALBUTEROL FS 2.5 MG/0.5 ML VIAL.NEB NEB PRN (00:31)
[2021-02-10 04:31] LABS: EOSINOPHILS % (AUTO) 1.5 % (0.0-6.0); HEMATOCRIT 30 % (39-51); HEMOGLOBIN 9.3 g/dL (13.5-17.5); LYMPHOCYTES # (AUTO) 0.5 /CMM (0.8-4.8); LYMPHOCYTES % (AUTO) 5.2 % (20.0-44.0); MEAN CORPUSCULAR HGB CONC 32 g/dl (31.0-36.0); MEAN CORPUSCULAR VOLUME 83 fL (80-96); MONOCYTES # (AUTO) 0.5 /CMM (0.1-1.30); MONOCYTES % (AUTO) 4.5 % (2.0-12.0); NEUTROPHILS % (AUTO) 88.8 % (43.0-81.0); PLATELET COUNT (AUTO) 280 /CMM (150-450); RED BLOOD CELL COUNT(AUTO) 3.54 MIL/uL (4.5-6.0); WHITE BLOOD COUNT (AUTO) 10.1 K/uL (4.3-11.0)
[2021-02-10 04:33] LABS: CALCIUM, SERUM 7.8 mg/dL (8.5-10.1); CREATININE 0.8 mg/dL (0.6-1.3); MAGNESIUM 2.3 mg/dL (1.8-2.4); PHOSPHORUS 2.7 mg/dL (2.5-4.9); POTASSIUM 4.4 mmol/L (3.5-5.1)
[2021-02-10] MEDS: MEROPENEM 1 G in IV NS 0.9% 100 ML IV SCH ×3 (06:00→21:00)
--- NOTE | 2021-02-10 07:00 | NUR ---
RN NOTES RECEIVED PT ON BED, ALERT/ FOLLOWS SIMPLE COMMAND, ON 3L O2 N/C , O2 SAT WNL, DEEP SUCTIONING DONE , PT HAS MODERATED AMOUNT OF SECRETION , NEEDS FREQUENT SUCTIONING , ON TELE V -PACING HR IN 60'S , TF AT 10CC/HR RUNNING , PT TOLERATING WELL , NO RESIDUAL NOTED, R IJ TLC SITE CLEAN, DRY AND INTACT, SR UP x3, CALL LIGHT WITHIN EASY REACH, BED LOCKED AND IN LOWEST POSITION, CONTINUE TO MONITOR
--- NOTE | 2021-02-10 07:02 | NUR ---
RN NOTES No s/s of acute changes noted during shift. continues with 3L/min via NC saturating 99%. Deep suctioned by RT as needed. NGT intact cont with Jevity 1.2 at 10ml/hr, noted with 30ml residual. RIJ intact and flushed well. Turning repositioning as tolerated. Morning care provided, mouth care given. Kept clean dry and comfortable through out the shift. All safety measures in place, call light within reach. Endorse to AM nurse for gary.
[2021-02-10] MEDS: ASCORBIC ACID 500 MG TABLET PO SCH (08:20)
[2021-02-10] MEDS: BLOOD SUGAR DIAGNOSTIC 1 EACH STRIP IN SCH ×4 (08:20→21:00)
[2021-02-10] MEDS: SPIRONOLACTONE 25 MG TABLET PO SCH (08:20)
[2021-02-10] MEDS: THIAMINE HCL 100 MG TABLET PO SCH (08:21)
[2021-02-10] MEDS: ASPIRIN EC 81 MG TABLET.DR PO SCH (08:21)
[2021-02-10] MEDS: PANTOPRAZOLE 40 MG TABLET.DR PO SCH (08:21)
[2021-02-10] MEDS: SUCRALFATE 1 G TABLET PO SCH ×4 (08:21→21:00)
[2021-02-10] MEDS: SERTRALINE HCL 50 MG TABLET PO SCH (08:21)
[2021-02-10] MEDS: CHOLECALCIFEROL 1,000 UNIT TABLET (VIT D3) PO SCH (08:21)
[2021-02-10] MEDS: ZINC SULFATE 220 MG CAPSULE PO SCH (08:21)
[2021-02-10] MEDS: FLUTICASONE/VILANTEROL 1 EACH BLST.W.DEV IH SCH (08:22)
[2021-02-10] MEDS: NEOMY SULF/BACITRAC ZN/POLY 15 GM TUBE TP SCH (08:23)
[2021-02-10] MEDS: MUPIROCIN OINT 2% 22 GM TUBE NS SCH ×2 (08:23→21:00)
[2021-02-10] MEDS: Z GUARD REMEDY 2 OZ OINT TP SCH (08:24)
[2021-02-10] MEDS: THERAHONEY GEL 1.5 OZ TUBE TP SCH (08:24)
[2021-02-10] MEDS: PROSOURCE / PROSTAT (PYXIS) 30 ML UDC GT SCH ×3 (08:25→16:35)
[2021-02-10 08:38] LABS: ABG BASE EXCESS -0.5 mmol/L; ABG OXYGEN SATURATION 98.3 % (92.0-98.5); ABG PCO2 58.4 mmHg (35.0-45.0); ABG PH 7.281 (7.350-7.450); ABG PO2 129.3 mmHg (75.0-100.0); AaDO2 30.5 mmHg; COHb 0.3 % (0.5-1.5); MetHb 0.5 % (0.0-1.5); O2Hb 97.5 % (94.0-97.0); SITE, ABG Right Radial; VENT MODE, BG 3L NC
--- NOTE | 2021-02-10 09:30 | NUR ---
RN NOTES DR HOUSER NOITFED REGARDING ABG RESULTS , CONTINUE TO MONITOR .
--- NOTE | 2021-02-10 10:25 | NUR ---
RESP NOTE RT AND MD QARNI AT BEDSIDE. DISCUSSED PATIENT CONDITION. MD DOES NOT WANT TO REINTUBATE AT THIS TIME.
--- NOTE | 2021-02-10 10:29 | NUR ---
RN NOTES NO REINTUBATION PER DR HOUSER ORDER . O2 SAT 100% , MD AWARE OF ABG RESULTS , CONTINUE TO MONITOR.
[2021-02-10] MEDS: MICAFUNGIN SODIUM 100 MG in IV NS 0.9% 100 ML IV SCH (12:06)
--- NOTE | 2021-02-10 13:00 | NUR ---
RN NOTES PT IS MORE LETHARGIC , DIVYA INTAKE CLERK, AND DR HOUSER NOTIFED, ORDER RECEIVED FOR BREATHING TX AND PLACE PT ON BIPAP , CONTINUE TO MONITOR .
[2021-02-10 15:12] LABS: ABG BASE EXCESS -1.5 mmol/L; ABG OXYGEN SATURATION 97.6 % (92.0-98.5); ABG PCO2 37.7 mmHg (35.0-45.0); ABG PH 7.403 (7.350-7.450); ABG PO2 104.1 mmHg (75.0-100.0); AaDO2 137.7 mmHg; COHb 0.3 % (0.5-1.5); MetHb 0.5 % (0.0-1.5); O2Hb 96.8 % (94.0-97.0); SITE, ABG Right Radial
--- NOTE | 2021-02-10 16:00 | NUR ---
RN NOTES DR HOUSER AN FOREIGN COLLECTION CLERK NOTIFED REGARDING ABG RESULTS, NO NEW ORDER GIVEN , PT IS MORE ALERT AND RESPONSIVE, PT STATED WANTS TO REMAIN FULL CODE .
[2021-02-10] MEDS: RIVAROXABAN 10 MG TABLET PO SCH (16:35)
--- NOTE | 2021-02-10 18:12 | NUR ---
RN NOTES PT REMAINS ON BIPAP, WAKES UP TO VERBAL STIMULI, , O2 SAT WNL, ON TELE V-PACING ,HR IN 60'S , TOLERAING TF AT 10CC/HR , SR UP x3, CALL LIGHT WITHIN EASY REACH, BED LOCKED AND IN LOWEST POSITION, WILL ENDORSE TO ACADEMIC INTERN NURSE FOR CONTINUITY OF CARE.
[2021-02-10] MEDS: JEVITY 1.2 CAL 1,000 ML BOTTLE GT PRN (18:58)
--- NOTE | 2021-02-10 19:15 | NUR ---
RIVET TAPPING MACHINE OPERATOR RCD PT W/DX ACUTE STROKE. PTON BIPAP RATE 14 15/5 100%; SATURATION 100% PER MONITOR. NO RESP DISTRESS NOTED. VPACING ON MONITOR. A/0 x1 ABLE TO NOD YES OR NO. NG TUBE IN PLACE WITH JEVITY @ 10 ML/HR. NO RESIDUAL AT THIS TIME. SACRAL SCARRING WITH OPEN WOUND. MEPILEX IN PLACE. ARTERIAL ULCER NOTED THROUGHOUT FEET. RIJ TLC W/NS @ TKO.
[2021-02-10] MEDS: TAMSULOSIN 0.4 MG CAP.SR.24H PO SCH (21:00)
[2021-02-10] MEDS: MIRTAZAPINE 15 MG TABLET PO SCH (21:00)
[2021-02-10] MEDS: MONTELUKAST SODIUM (10MG) 10 MG TABLET PO SCH (21:00)
--- NOTE | 2021-02-10 21:03 | NUR ---
BUILDING CONSTRUCTION CONTRACTOR BLOOD GLUCOSE 124 NO COVERAGE PER INSULIN SLIDING SCALE.
[2021-02-11] VITALS (24 sets, daily range): BP systolic 97–121; BP diastolic 47–61
--- NOTE | 2021-02-11 00:04 | NUR ---
BLOWER OPERATOR PT TURNED AND REPOSITIONED; RENDERED ORAL CARE. REMAINS ON BIPAP.
[2021-02-11] MEDS: ACETYLCYSTEINE 10% SOLN 400 MG/4 ML VIAL NEB SCH ×4 (01:56→23:30)
[2021-02-11] MEDS: IPRATROPIUM NEB FS 0.5 MG/2.5 ML AMPUL.NEB NEB SCH ×4 (01:57→20:52)
--- NOTE | 2021-02-11 03:30 | NUR ---
CASINO CAGE CASHIER NT SUCTIONING BY RT.
[2021-02-11 04:56] LABS: BASOPHILS % (AUTO) 0.1 % (0.0-2.0); EOSINOPHILS % (AUTO) 2.8 % (0.0-6.0); HEMATOCRIT 27 % (39-51); HEMOGLOBIN 8.5 g/dL (13.5-17.5); LYMPHOCYTES # (AUTO) 0.4 /CMM (0.8-4.8); LYMPHOCYTES % (AUTO) 4.2 % (20.0-44.0); MEAN CORPUSCULAR HGB CONC 32 g/dl (31.0-36.0); MEAN CORPUSCULAR VOLUME 83 fL (80-96); MONOCYTES # (AUTO) 0.5 /CMM (0.1-1.30); MONOCYTES % (AUTO) 4.7 % (2.0-12.0); NEUTROPHILS # (AUTO) 8.9 /CMM (1.8-8.9); NEUTROPHILS % (AUTO) 88.2 % (43.0-81.0); PLATELET COUNT (AUTO) 252 /CMM (150-450)
[2021-02-11 05:12] LABS: CALCIUM, SERUM 7.7 mg/dL (8.5-10.1); CREATININE 0.7 mg/dL (0.6-1.3); PHOSPHORUS 2.1 mg/dL (2.5-4.9); POTASSIUM 3.7 mmol/L (3.5-5.1)
[2021-02-11] MEDS: MEROPENEM 1 G in IV NS 0.9% 100 ML IV SCH ×3 (05:30→21:17)
[2021-02-11 06:17] LABS: BASOPHILS % (MANUAL) 0 % (0.0-2.0); EOSINOPHILS % (MANUAL) 4 % (0-4); LYMPHOCYTES % (MANUAL) 4 % (16-48); MONOCYTES % (MANUAL) 8 % (0-11.0); NEUTROPHILS % (MANUAL) 84 (42-76)
--- NOTE | 2021-02-11 07:03 | NUR ---
RN NOTES RECEIVED PT ON BED, ALERT/ FOLLOWS SIMPLE COMMAND, ON BIPAP, TOLERATING CURRENT SETTING , O2 SAT WNL, PT HAS NEEDS FREQUENT SUCTIONING , ON TELE V -PACING HR IN 60'S , TF AT 10CC/HR RUNNING , PT TOLERATING WELL , NO RESIDUAL NOTED, R IJ TLC SITE CLEAN, DRY AND INTACT, SR UP x3, CALL LIGHT WITHIN EASY REACH, BED LOCKED AND IN LOWEST POSITION, CONTINUE TO MONITOR
--- NOTE | 2021-02-11 07:51 | NUR ---
placed on nasopharyngeal airway for easy access for suctioning. Addendum: 02/11/21 at 1600 by GRACIE KIRBY RT Amended: Links added.
[2021-02-11] MEDS: Z GUARD REMEDY 2 OZ OINT TP SCH (08:01)
[2021-02-11] MEDS: NEOMY SULF/BACITRAC ZN/POLY 15 GM TUBE TP SCH (08:01)
[2021-02-11] MEDS: THERAHONEY GEL 1.5 OZ TUBE TP SCH (08:02)
[2021-02-11] MEDS: ASCORBIC ACID 500 MG TABLET PO SCH (08:13)
[2021-02-11] MEDS: CHOLECALCIFEROL 1,000 UNIT TABLET (VIT D3) PO SCH (08:13)
[2021-02-11] MEDS: BLOOD SUGAR DIAGNOSTIC 1 EACH STRIP IN SCH ×4 (08:13→21:55)
[2021-02-11] MEDS: ASPIRIN EC 81 MG TABLET.DR PO SCH (08:13)
[2021-02-11] MEDS: PANTOPRAZOLE 40 MG TABLET.DR PO SCH (08:13)
[2021-02-11] MEDS: ZINC SULFATE 220 MG CAPSULE PO SCH (08:13)
[2021-02-11] MEDS: THIAMINE HCL 100 MG TABLET PO SCH (08:13)
[2021-02-11] MEDS: SUCRALFATE 1 G TABLET PO SCH ×4 (08:13→21:16)
[2021-02-11] MEDS: PROSOURCE / PROSTAT (PYXIS) 30 ML UDC GT SCH ×3 (08:13→16:26)
[2021-02-11] MEDS: SPIRONOLACTONE 25 MG TABLET PO SCH (08:14)
[2021-02-11] MEDS: SERTRALINE HCL 50 MG TABLET PO SCH (08:14)
[2021-02-11] MEDS: MUPIROCIN OINT 2% 22 GM TUBE NS SCH ×2 (08:15→21:15)
[2021-02-11] MEDS: FLUTICASONE/VILANTEROL 1 EACH BLST.W.DEV IH SCH (08:15)
--- NOTE | 2021-02-11 08:29 | NUR ---
placed into simple mask @ 10 lpm O2 flow. Addendum: 02/11/21 at 0830 by GRACIE KIRBY RT Amended: Links added.
[2021-02-11] MEDS: MICAFUNGIN SODIUM 100 MG in IV NS 0.9% 100 ML IV SCH (11:11)
[2021-02-11] MEDS: INSULIN REGULAR, HUMAN 100 UNIT/ML 3 ML VIAL SQ PRN ×2 (11:20→21:56)
[2021-02-11] MEDS ORDERED: K PHOS NEUTRAL 250 MG TABLET PO ONE (12:00)
--- NOTE | 2021-02-11 12:00 | NUR ---
RN NOTES PT ON SIMPLE MASK AT 10L, O2 SAT WNL , FREQUENT NT AND ORAL SUCTIONING DONE, CONTINUE TO MONITOR .
--- NOTE | 2021-02-11 13:00 | NUR ---
RN NOTES DRESSING TO R FOOT CHANGED PER MD ORDER .
[2021-02-11] MEDS: RIVAROXABAN 10 MG TABLET PO SCH (16:26)
--- NOTE | 2021-02-11 18:09 | NUR ---
RN NOTES PT REMAINS ON 10 L FACE MASK , O2 SAT WNL, SOB NOTED AT TIMES, NEEDED FREQUENT SUCTIONING, TOLERAING TF AT 10CC/HR WELL, WILL ENDORSE TO CUSTOMER LEADER NURSE FOR CONTINUITY OF CARE.
--- NOTE | 2021-02-11 19:30 | NUR ---
RN OPENING NOTES: RECEIVED PT A/OX1 ; IN BED RESTING COMFORTABLY. PATIENT IN NO S/SX OF ACUTE DISTRESS AT THIS TIME. NO SOB NOTED. PATIENT'S BREATHING IS EVEN AND UNLABORED. PATIENT IS ON 10L OF OXYGEN VIA SIMPLE MASK; TOLERATING WELL WITH 02 SAT >95% AT THE TIME OF RECEIVED. PATIENT ON TELE MONITORING READING V PACING HR IS @6Os AT THE TIME OF RECEIVED. NOTED NGT IN PLACED IN L NARE; PLACEMENT VERIFIED WITH AUSCULTATION. NO RESIDUAL TAKEN AT THIS TIME; CONNECTED TO TUBE FEEDING OF JEVITY 1.2 @10ML/HR. PATIENT WITH R IJ SECURED AND INTACT; NO S/S OF INFECTION OR INFILTRATION. PATIENT WITH SAINI CATH IN PLACE, MINIMAL URINE OUTPUT NOTED SAFETY MEASURES HAVE BEEN PROVIDED AND IMPLEMENTED. PATIENT BED ALARM IS ON. HEAD OF BED ELEVATED. BED IS LOCKED, IN LOWEST POSITION AND SIDE RAILS UP. CALL LIGHT WITHIN REACH OF THE PATIENT. APPLICABLE ISOLATION PRECAUTIONS IN PLACE. WILL CONTINUE TO MONITOR AND REASSESS FOR ANY CHANGES AND WILL CARRY OUT ANY ONGOING AND ACTIVE MD ORDER.
[2021-02-11] MEDS: MONTELUKAST SODIUM (10MG) 10 MG TABLET PO SCH (21:16)
[2021-02-11] MEDS: TAMSULOSIN 0.4 MG CAP.SR.24H PO SCH (21:16)
[2021-02-11] MEDS: MIRTAZAPINE 15 MG TABLET PO SCH (21:16)
--- NOTE | 2021-02-11 22:03 | NUR ---
RT pt refused noc bipap. adelia coulter, notified.
--- NOTE | 2021-02-11 22:10 | NUR ---
RN NOTES RT COORDINATED THAT PT REFUSED FOR BIPAP TX; RN ACKNOWLEDGED. PT'S CURRENT O2 SAT @99%. LEAD SPRINKLER MADE AWARE. WILL CONTINUE TO ASSESS AND MONITOR THROUGHOUT THE SHIFT.
--- NOTE | 2021-02-11 23:00 | NUR ---
RN NOTES NO CHANGE IN PATIENT CONDITION AT THIS TIME PATIENT VITALS STABLE, NO SIGNS OF ACUTE RESPIRATORY DISTRESS. PLATE PAINTER APPRENTICE MADE AWARE. WILL CONTINUE TO MONITOR AND REASSESS FOR ANY CHANGES THROUGHOUT THE SHIFT.
[2021-02-12] VITALS (24 sets, daily range): BP systolic 104–119; BP diastolic 44–60
[2021-02-12] MEDS: IPRATROPIUM NEB FS 0.5 MG/2.5 ML AMPUL.NEB NEB SCH ×4 (01:30→19:46)
--- NOTE | 2021-02-12 01:43 | NUR ---
RT pt refused tx. notified ed, contractor broomcorn threshing
--- NOTE | 2021-02-12 04:00 | NUR ---
RN NOTES PATIENT REMAINS IN NO ACUTE RESPIRATORY DISTRESS AT THIS TIME, NO CHANGES TO CONDITION/STATUS. AM PATIENT CARE DONE. USED EQUIPMENT SALES REPRESENTATIVE WELL AWARE. WILL CONTINUE TO MONITOR AND REASSESS FOR ANY CHANGES THROUGHOUT THE SHIFT
[2021-02-12 05:02] LABS: BASOPHILS % (AUTO) 0.1 % (0.0-2.0); EOSINOPHILS % (AUTO) 1.9 % (0.0-6.0); HEMATOCRIT 25 % (39-51); HEMOGLOBIN 7.9 g/dL (13.5-17.5); LYMPHOCYTES # (AUTO) 0.4 /CMM (0.8-4.8); LYMPHOCYTES % (AUTO) 3.8 % (20.0-44.0); MEAN CORPUSCULAR HGB CONC 31 g/dl (31.0-36.0); MEAN CORPUSCULAR VOLUME 83 fL (80-96); MONOCYTES # (AUTO) 0.6 /CMM (0.1-1.30); MONOCYTES % (AUTO) 5.4 % (2.0-12.0); NEUTROPHILS # (AUTO) 10.1 /CMM (1.8-8.9); NEUTROPHILS % (AUTO) 88.8 % (43.0-81.0); PLATELET COUNT (AUTO) 231 /CMM (150-450); WHITE BLOOD COUNT (AUTO) 11.4 K/uL (4.3-11.0)
[2021-02-12 05:29] LABS: CALCIUM, SERUM 7.8 mg/dL (8.5-10.1); CREATININE 0.6 mg/dL (0.6-1.3); MAGNESIUM 1.9 mg/dL (1.8-2.4); PHOSPHORUS 2.5 mg/dL (2.5-4.9); POTASSIUM 3.5 mmol/L (3.5-5.1)
[2021-02-12] MEDS: MEROPENEM 1 G in IV NS 0.9% 100 ML IV SCH ×3 (06:10→22:11)
[2021-02-12] MEDS: ACETYLCYSTEINE 10% SOLN 400 MG/4 ML VIAL NEB SCH ×2 (06:39→14:46)
--- NOTE | 2021-02-12 07:00 | NUR ---
RN CLOSING NOTE: PATIENT REMAINS IN ROOM IN NO SIGNS OF RESPIRATORY DISTRESS, PATIENT STILL ON 10L OF 02 VIA SIMPLE MASK;TOLERATING WELL SATURATING @ >95% SP02. SAFETY MEASURES IMPLEMENTED, BED IN LOWEST POSITION, LOCKED, SIDE RAILS UP, CALL LIGHT WITHIN REACH. ALL NEEDS AND ORDERS ADDRESSED DURING THE SHIFT. IV ACCESS MAINTAINED INTACT, SECURED AND FLUSHING WELL. ALL DUE MEDS GIVEN ORDERED & SCHEDULED ; PATIENT TOLERATED WELL. PATIENT KEPT CLEAN AND COMFORTABLE WITHIN THE SHIFT. WOUND CARE DONE. PATIENT ENDORSED TO INCOMING SHIFT RN WITH STABLE VITAL SIGN AND FOR CONTINUITY OF CARE.
--- NOTE | 2021-02-12 07:30 | NUR ---
SKIMMER SCOOP OPERATOR OPENING NOTES Patient is alert and oriented and follows command. Patient is on 10 liters 02 via simple mask with 02 saturation of 98% 02 saturation.No c/o pain or discomfort. Patient noted with ng tube to left nare. Right IJ noted with TKO. HOB kept elevated. Bed is in lowest and locked position. Patient will be monitored. Call light with in reach. Goel cath intact and hanging to gravity with clear yellow urine.
[2021-02-12] MEDS: BLOOD SUGAR DIAGNOSTIC 1 EACH STRIP IN SCH ×4 (07:47→22:16)
[2021-02-12] MEDS: INSULIN REGULAR, HUMAN 100 UNIT/ML 3 ML VIAL SQ PRN ×3 (07:47→17:58)
[2021-02-12] MEDS: PANTOPRAZOLE 40 MG TABLET.DR PO SCH (08:18)
[2021-02-12] MEDS: SPIRONOLACTONE 25 MG TABLET PO SCH (08:18)
[2021-02-12] MEDS: ASPIRIN EC 81 MG TABLET.DR PO SCH (08:19)
[2021-02-12] MEDS: CHOLECALCIFEROL 1,000 UNIT TABLET (VIT D3) PO SCH (08:19)
[2021-02-12] MEDS: ASCORBIC ACID 500 MG TABLET PO SCH (08:19)
[2021-02-12] MEDS: SUCRALFATE 1 G TABLET PO SCH ×4 (08:19→22:10)
[2021-02-12] MEDS: THIAMINE HCL 100 MG TABLET PO SCH (08:19)
[2021-02-12] MEDS: SERTRALINE HCL 50 MG TABLET PO SCH (08:20)
[2021-02-12] MEDS: ZINC SULFATE 220 MG CAPSULE PO SCH (08:20)
[2021-02-12] MEDS: MUPIROCIN OINT 2% 22 GM TUBE NS SCH ×2 (09:31→22:13)
[2021-02-12] MEDS: NEOMY SULF/BACITRAC ZN/POLY 15 GM TUBE TP SCH (09:31)
[2021-02-12] MEDS: FLUTICASONE/VILANTEROL 1 EACH BLST.W.DEV IH SCH (09:31)
[2021-02-12] MEDS: PROSOURCE / PROSTAT (PYXIS) 30 ML UDC GT SCH ×3 (09:31→17:32)
[2021-02-12] MEDS: Z GUARD REMEDY 2 OZ OINT TP SCH (09:31)
[2021-02-12] MEDS: THERAHONEY GEL 1.5 OZ TUBE TP SCH (09:31)
--- NOTE | 2021-02-12 10:00 | NUR ---
Wound care provided and patient kept clean and dry.
[2021-02-12] MEDS: MICAFUNGIN SODIUM 100 MG in IV NS 0.9% 100 ML IV SCH (12:07)
[2021-02-12] MEDS: TRAMADOL HCL 50 MG TABLET PO PRN (12:17)
--- NOTE | 2021-02-12 13:50 | NUR ---
Patient was turned and repositioned and provided with sponge bath.
[2021-02-12] MEDS: RIVAROXABAN 10 MG TABLET PO SCH (17:31)
--- NOTE | 2021-02-12 18:30 | NUR ---
TAILOR FITTER CLOSING NOTES Patient is alert and oriented and follows command. Patient is on 10 liters 02 via simple mask with 02 saturation of 99% 02 saturation.No c/o pain or discomfort. Patient noted with ng tube to left nare running at 10 cc/hour. No residual noted during shift.Right IJ noted with TKO. HOB kept elevated. Bed is in lowest and locked position. Patient will be monitored. Call light with in reach. Goel cath intact and hanging to gravity with clear yellow urine and noted with urine output of 250 cc during shift. Will endorse to next shift for gary.
--- NOTE | 2021-02-12 19:35 | NUR ---
RN NOTES RECEIVED PATIENT AOX2 FOLLOWS COMMAND RESPONSIVE TO TACTILE AND VERBAL STIMULI. WITH O2 10 LPM VIA MASK TOLERATED WELL. SATURATION 100%. DIMINISHED THROUGHOUT LUNGS AFEBRILE. DENIES PAIN. VPACING WITH BBB ON MONITOR. HR 60 . LCW PACEMAKER PRESENT. NGTF WITH JEVITY 1.2 @ 10 CC/HR ON LEFT NARES ARE INTACT AND PATENT. PRESENT WITH 10 CC RESIDUAL. PATIENT HAS IV SITE ON RIJ FLUSHED WELL. INTACT AND PATENT. SOLEY CATH DRAINED VIA GRAVITY. KEPT OFF FROM THE FLOOR. TURN AND REPOSITION Q2H AND PRN PATIENT COMFORTABLE. KEPT PT CLEAN AND DRY. OFFLOADED EXT WTIH PILLOWS. WILL CONTINUE POC.
[2021-02-12] MEDS: TAMSULOSIN 0.4 MG CAP.SR.24H PO SCH (22:10)
[2021-02-12] MEDS: MONTELUKAST SODIUM (10MG) 10 MG TABLET PO SCH (22:10)
[2021-02-12] MEDS: MIRTAZAPINE 15 MG TABLET PO SCH (22:10)
[2021-02-13] VITALS (25 sets, daily range): BP systolic 93–122; BP diastolic 31–63
[2021-02-13] MEDS: ACETYLCYSTEINE 10% SOLN 400 MG/4 ML VIAL NEB SCH ×3 (00:28→23:16)
[2021-02-13] MEDS: IPRATROPIUM NEB FS 0.5 MG/2.5 ML AMPUL.NEB NEB SCH ×5 (00:30→23:17)
[2021-02-13] MEDS: JEVITY 1.2 CAL 1,000 ML BOTTLE GT PRN (01:36)
[2021-02-13 04:46] LABS: BASOPHILS % (AUTO) 0.1 % (0.0-2.0); EOSINOPHILS % (AUTO) 1.7 % (0.0-6.0); HEMATOCRIT 27 % (39-51); HEMOGLOBIN 8.4 g/dL (13.5-17.5); LYMPHOCYTES # (AUTO) 0.7 /CMM (0.8-4.8); LYMPHOCYTES % (AUTO) 4.5 % (20.0-44.0); MEAN CORPUSCULAR HGB CONC 31 g/dl (31.0-36.0); MEAN CORPUSCULAR VOLUME 85 fL (80-96); MONOCYTES # (AUTO) 0.8 /CMM (0.1-1.30); MONOCYTES % (AUTO) 5.1 % (2.0-12.0); NEUTROPHILS # (AUTO) 13.3 /CMM (1.8-8.9); NEUTROPHILS % (AUTO) 88.6 % (43.0-81.0); PLATELET COUNT (AUTO) 313 /CMM (150-450); RED BLOOD CELL COUNT(AUTO) 3.19 MIL/uL (4.5-6.0)
--- NOTE | 2021-02-13 05:01 | NUR ---
RN NOTES PATIENT SOUNDS CONGESTED AND SATURATION WENT DOWN TO 86%, CRACKLES SOUND HEARD THROUGHOUT THE LUNGS RESPIRATORY THERAPHY AT BEDSIDE AND DEEP SUCTION RENDERED WITH MODERATE TO LARGE AMT OF THICK BLOODY SECRETION. SATURATION AT THIS TIME AT 95% BUT PATIENT STILL CONGESTED WAITING FOR CXR RESULT. BEDBATH DONE AT THIS TIME AND TOLERATED WELL. PATIENT O2 LEVEL AT 100%. WILL CLOSELY MONITOR.
[2021-02-13 05:12] LABS: CALCIUM, SERUM 8.1 mg/dL (8.5-10.1); CREATININE 0.8 mg/dL (0.6-1.3); PHOSPHORUS 2.9 mg/dL (2.5-4.9); POTASSIUM 3.8 mmol/L (3.5-5.1)
[2021-02-13] MEDS: MEROPENEM 1 G in IV NS 0.9% 100 ML IV SCH ×3 (06:07→21:32)
[2021-02-13] MEDS: BLOOD SUGAR DIAGNOSTIC 1 EACH STRIP IN SCH ×4 (06:54→21:37)
[2021-02-13] MEDS: PANTOPRAZOLE 40 MG TABLET.DR PO SCH (06:56)
[2021-02-13] MEDS ORDERED: BUMETANIDE INJ 0.25 MG/ML VIAL IV ONE (07:00)
--- NOTE | 2021-02-13 07:00 | NUR ---
RN NOTES RECEIVED PT ON BED, ALERT/ FOLLOWS SIMPLE COMMAND, ON FACE MASK AT 10L, O2 SAT WNL,PT NEEDS FREQUENT SUCTIONING, ON TELE V -PACING HR IN 60'S , TF AT 10CC/HR RUNNING , PT TOLERATING WELL , NO RESIDUAL NOTED, R IJ TLC SITE CLEAN, DRY AND INTACT, SR UP x3, CALL LIGHT WITHIN EASY REACH, BED LOCKED AND IN LOWEST POSITION, CONTINUE TO MONITOR
--- NOTE | 2021-02-13 07:10 | NUR ---
RN NOTES RECEIVED AN ORDER TO DR. SUN TO GIVE BUMEX 2MG IV SLOWLY PUSH. ADMINISTERED AND TOLERATED WELL. ENDORSED CONTINUITY OF CARE TO AM NURSE.
--- NOTE | 2021-02-13 08:09 | NUR ---
WOUND CARE CONSULT: PT PRESENTS WITH SURGICAL DRESSING TO RT LOWER EXTREMITY AND SCARRING TO SACRUM AND LEFT HEEL. PER REPORT, PT HAD RT BELOW KNEE AMPUTATION YESTERDAY. RECOMMENDATIONS MADE FOR SKIN PROTECTION. DISCUSSED WITH NURSING STAFF. DEFER TO SURGICAL TEAM AND PODIATRY FOR LOWER EXTREMITIES. MD IN AGREEMENT WITH PLAN OF CARE.
--- NOTE | 2021-02-13 08:13 | NUR ---
PLEASE DISREGARD ABOVE WOUND CARE NOTE. INCORRECT CHART.
[2021-02-13] MEDS: SERTRALINE HCL 50 MG TABLET PO SCH (08:19)
[2021-02-13] MEDS: ASCORBIC ACID 500 MG TABLET PO SCH (08:19)
--- NOTE | 2021-02-13 08:19 | NUR ---
WOUND CARE CONSULT: PT SEEN FOR RE-EVALUATION OF SACRAL WOUND. PT NOTED TO HAVE RE-OPENED STAGE 4 SACRAL ULCER (PRESENT ON ADMISSION LARGE AREA OF SCARRING WITH OPEN AREA), INCONTINENCE ASSOCIATED SKIN DAMAGE TO BILATERAL LOWER BUTTOCKS AND SCAR WITH FRAGILE AREA TO LEFT OUTER BUTTOCK. 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 PER NURSING STAFF, PT PREVIOUSLY HAD LOOSE STOOLS. DUE TO MULTIPLE CO-MORBIDITIES, FURTHER SKIN BREAKDOWN MAY BE UNAVOIDABLE. DISCUSSED WOUND CARE AND SKIN PROTECTION WITH SHIRLEY MURPHY, SURGICAL P.A. AND WITH NURSING STAFF. WOUND TREATMENT UPDATED. PT IS ON TESS ISOFLEX LOW AIRLOSS BED. IN AGREEMENT WITH PLAN OF CARE.
[2021-02-13] MEDS: CHOLECALCIFEROL 1,000 UNIT TABLET (VIT D3) PO SCH (08:20)
[2021-02-13] MEDS: SPIRONOLACTONE 25 MG TABLET PO SCH (08:20)
[2021-02-13] MEDS: ASPIRIN EC 81 MG TABLET.DR PO SCH (08:20)
[2021-02-13] MEDS: SUCRALFATE 1 G TABLET PO SCH ×4 (08:20→21:32)
[2021-02-13] MEDS: THIAMINE HCL 100 MG TABLET PO SCH (08:20)
[2021-02-13] MEDS: ZINC SULFATE 220 MG CAPSULE PO SCH (08:20)
[2021-02-13] MEDS: PROSOURCE / PROSTAT (PYXIS) 30 ML UDC GT SCH ×3 (08:21→16:22)
[2021-02-13] MEDS: FLUTICASONE/VILANTEROL 1 EACH BLST.W.DEV IH SCH (08:21)
[2021-02-13] MEDS: MUPIROCIN OINT 2% 22 GM TUBE NS SCH ×2 (08:21→21:38)
[2021-02-13] MEDS: Z GUARD REMEDY 2 OZ OINT TP SCH (08:22)
[2021-02-13] MEDS: NEOMY SULF/BACITRAC ZN/POLY 15 GM TUBE TP SCH (08:22)
[2021-02-13] MEDS: THERAHONEY GEL 1.5 OZ TUBE TP SCH (08:22)
[2021-02-13 10:07] LABS: RENIN, PLASMA 6.552 ng/mL/hr (0.167-5.380)
[2021-02-13] MEDS: DAKINS QUARTER STRENGTH (0.125%) 480 ML BOTTLE TOP SCH (10:19)
[2021-02-13 10:23] LABS: ABG BASE EXCESS 5.6 mmol/L; ABG OXYGEN SATURATION 99.4 % (92.0-98.5); ABG PH 7.384 (7.350-7.450); ABG PO2 250.5 mmHg (75.0-100.0); COHb 0.3 % (0.5-1.5); MetHb 0.6 % (0.0-1.5); O2Hb 98.5 % (94.0-97.0); SITE, ABG Right Brachial; VENT MODE, BG 5L NC
--- NOTE | 2021-02-13 10:31 | NUR ---
RN NOTES ABG DONE PER PRINTING TABLE HAND ORDER, DR HOUSER AND PRINTING TABLE HAND, NOTIFIED.NO NEW ORDER GIVEN CONTINUE TO MONITOR .
--- NOTE | 2021-02-13 12:00 | NUR ---
RN NOTES DEEP SUCTION RENDERED WITH MODERATE TO LARGE AMT OF THICK BLOODY SECRETION NOTED, PT UNABLE TO COUGH UP HIS OWN SECRETION, CONTINUE TO MONITOR .
[2021-02-13] MEDS: RIVAROXABAN 10 MG TABLET PO SCH (16:21)
--- NOTE | 2021-02-13 18:00 | NUR ---
RN NOTES PT REMANINS ON 2L O2 N/C ,NEEDS FREQUENT SUCTIONING, PT HAS LARGE AMOUNT OF THICK BLOODY TINGED , SECRETION , V- PACING ON TELE, TF AT 10CC/ HR RUNNING , NO RESIDUAL NOTED, HOB ELEVATED AT ALL TIMES , ASPIRATION PRECAUTION OBSERVED , R IJ TLC SITE INTACT, SR UP x3, CALL LIGHT WITHIN EASY REACH, BED LOCKED AND IN LOWEST POSITION, WILL ENDORSE TO ADMISSIONS DEAN NURSE FOR CONTINUITY OF CARE .
--- NOTE | 2021-02-13 20:00 | NUR ---
RN NOTES RECEIVED PATIENT AOX2 FOLLOWS COMMAND RESPONSIVE TO TACTILE AND VERBAL STIMULI. WITH O2 2 LPM VIA NC TOLERATED WELL. SATURATION 100%. BILATERAL LUNG SOUND WITH RHONCHI AND CRACKLES SOUND, AFEBRILE. DENIES PAIN. VPACING WITH BBB ON MONITOR. HR 60 . LCW PACEMAKER PRESENT. NGTF WITH JEVITY 1.2 @ 10 CC/HR ON LEFT NARES ARE INTACT AND PATENT. PRESENT WITH NO RESIDUAL NOTED RESIDUAL. PATIENT HAS IV SITE ON RIJ FLUSHED WELL. INTACT AND PATENT. SAINI CATH DRAINED VIA GRAVITY. KEPT OFF FROM THE FLOOR. TURN AND REPOSITION Q2H AND PRN PATIENT COMFORTABLE. KEPT PT CLEAN AND DRY. OFFLOADED EXT WTIH PILLOWS. WILL CONTINUE POC.
[2021-02-13] MEDS: MIRTAZAPINE 15 MG TABLET PO SCH (21:31)
[2021-02-13] MEDS: MONTELUKAST SODIUM (10MG) 10 MG TABLET PO SCH (21:31)
[2021-02-13] MEDS: TAMSULOSIN 0.4 MG CAP.SR.24H PO SCH (21:32)
[2021-02-13] MEDS: IV NS 0.9% 250 ML IV PRN (23:12)
[2021-02-14] VITALS (24 sets, daily range): BP systolic 94–122; BP diastolic 43–59
--- NOTE | 2021-02-14 01:00 | NUR ---
RN NOTES PATIENT IS SLEEPING AT THIS TIME, WITH VSS. V-PACING MONITOR.
[2021-02-14] MEDS: JEVITY 1.2 CAL 1,000 ML BOTTLE GT PRN ×2 (03:56→21:13)
--- NOTE | 2021-02-14 04:00 | NUR ---
RN NOTES TOLERATED BEDBATH. WOUND DRESSING CHANGED. VSS REMAINED STABLE. NT SUCTION RENDERED HARDLY PASSING ON HIS NOSE AND MOUTH AND GOT SMALL TO MODERATE AMT OF THIN BLOODY SECRETION . REMAINED BILATERAL CRACKLES AND RHONCHI ESPECIALLY WHEN PATIENT COUGHED. TURN AND REPOSITION Q2H AND PRN PATIENT COMFORTABLE. ALL DUE MEDICINE TOLERATED WELL. ENDORSED CONTINUITY OF CARE TO AM NURSE.
[2021-02-14 04:28] LABS: BASOPHILS % (AUTO) 0.2 % (0.0-2.0); EOSINOPHILS % (AUTO) 2.3 % (0.0-6.0); HEMATOCRIT 24 % (39-51); HEMOGLOBIN 7.5 g/dL (13.5-17.5); LYMPHOCYTES # (AUTO) 0.4 /CMM (0.8-4.8); LYMPHOCYTES % (AUTO) 3.8 % (20.0-44.0); MEAN CORPUSCULAR HGB CONC 32 g/dl (31.0-36.0); MEAN CORPUSCULAR VOLUME 84 fL (80-96); MONOCYTES # (AUTO) 0.5 /CMM (0.1-1.30); MONOCYTES % (AUTO) 4.5 % (2.0-12.0); NEUTROPHILS # (AUTO) 9.3 /CMM (1.8-8.9); NEUTROPHILS % (AUTO) 89.2 % (43.0-81.0); PLATELET COUNT (AUTO) 241 /CMM (150-450); RED BLOOD CELL COUNT(AUTO) 2.85 MIL/uL (4.5-6.0); WHITE BLOOD COUNT (AUTO) 10.4 K/uL (4.3-11.0)
[2021-02-14 04:48] LABS: CALCIUM, SERUM 7.9 mg/dL (8.5-10.1); CREATININE 0.7 mg/dL (0.6-1.3); MAGNESIUM 1.9 mg/dL (1.8-2.4); PHOSPHORUS 1.9 mg/dL (2.5-4.9); POTASSIUM 3.1 mmol/L (3.5-5.1)
[2021-02-14] MEDS: MEROPENEM 1 G in IV NS 0.9% 100 ML IV SCH (05:22)
--- NOTE | 2021-02-14 07:00 | NUR ---
RN NOTES RECEIVED PT ON BED, ALERT/ FOLLOWS SIMPLE COMMAND, ON 2L O2 N/C ,O2 SAT WNL, NEEDS FREQUENT SUCTIONING, ON TELE V -PACING HR IN 60'S , TF AT 10CC/HR RUNNING , PT TOLERATING WELL , NO RESIDUAL NOTED, R IJ TLC SITE CLEAN, DRY AND INTACT, SR UP x3, CALL LIGHT WITHIN EASY REACH, BED LOCKED AND IN LOWEST POSITION, CONTINUE TO MONITOR.
[2021-02-14 08:03] LABS: THYROID STIMULATING HORMONE 2.311 uIU/mL (0.358-3.74)
[2021-02-14] MEDS: Magnesium 1GM/D5W 100ML PREMIX 100 ML IV SCH ×2 (08:03→09:12)
[2021-02-14] MEDS: SERTRALINE HCL 50 MG TABLET PO SCH (08:06)
[2021-02-14] MEDS: ASPIRIN EC 81 MG TABLET.DR PO SCH (08:06)
[2021-02-14] MEDS: BLOOD SUGAR DIAGNOSTIC 1 EACH STRIP IN SCH ×4 (08:06→21:19)
[2021-02-14] MEDS: ZINC SULFATE 220 MG CAPSULE PO SCH (08:06)
[2021-02-14] MEDS: THIAMINE HCL 100 MG TABLET PO SCH (08:06)
[2021-02-14] MEDS: PANTOPRAZOLE 40 MG TABLET.DR PO SCH (08:06)
[2021-02-14] MEDS: SUCRALFATE 1 G TABLET PO SCH ×4 (08:07→21:11)
[2021-02-14] MEDS: ASCORBIC ACID 500 MG TABLET PO SCH (08:07)
[2021-02-14] MEDS: SPIRONOLACTONE 25 MG TABLET PO SCH (08:07)
[2021-02-14] MEDS: CHOLECALCIFEROL 1,000 UNIT TABLET (VIT D3) PO SCH (08:07)
[2021-02-14] MEDS: PROSOURCE / PROSTAT (PYXIS) 30 ML UDC GT SCH ×3 (08:09→16:52)
[2021-02-14] MEDS: POTASSIUM CHLORIDE 20 MEQ POWDER PACKET GT SCH ×3 (08:09→10:06)
[2021-02-14] MEDS: MUPIROCIN OINT 2% 22 GM TUBE NS SCH ×2 (08:09→21:14)
[2021-02-14] MEDS: FLUTICASONE/VILANTEROL 1 EACH BLST.W.DEV IH SCH (08:09)
[2021-02-14] MEDS: Z GUARD REMEDY 2 OZ OINT TP SCH (08:10)
[2021-02-14] MEDS: NEOMY SULF/BACITRAC ZN/POLY 15 GM TUBE TP SCH (08:10)
[2021-02-14] MEDS: DAKINS QUARTER STRENGTH (0.125%) 480 ML BOTTLE TOP SCH (08:11)
[2021-02-14] MEDS: THERAHONEY GEL 1.5 OZ TUBE TP SCH (08:11)
[2021-02-14] MEDS: ACETYLCYSTEINE 10% SOLN 400 MG/4 ML VIAL NEB SCH ×3 (08:20→23:18)
[2021-02-14] MEDS: IPRATROPIUM NEB FS 0.5 MG/2.5 ML AMPUL.NEB NEB SCH ×4 (08:21→23:18)
--- NOTE | 2021-02-14 12:00 | NUR ---
RN NOTES PT UNABLE TO CLEAR HIS OWN AIRWAY , HAS WEAK COUGH , ORAL AND NT SUCTIONING DONE. CONTINUE TO MONITOR .
[2021-02-14] MEDS: INSULIN REGULAR, HUMAN 100 UNIT/ML 3 ML VIAL SQ PRN ×3 (12:14→21:21)
[2021-02-14] MEDS ORDERED: Sodium Phosphate 30 MMOL in IV NS 0.9% 250 ML IV SCH (14:00)
[2021-02-14] MEDS ORDERED: Potassium Chloride 30 MEQ in IV D5W 1,000 ML IV ONE (14:00)
[2021-02-14] MEDS: RIVAROXABAN 10 MG TABLET PO SCH (16:53)
--- NOTE | 2021-02-14 18:00 | NUR ---
RN NOTES PT NEEDS FREQUENT NT AND ORAL SUCTIONING, ON 2 L O2 NC, ON TELE V PACING, TF AT 20CC/HR RUNNING, IVF AT 100C/HR RUNNING, SR UP x3, CALL LIGHT WITHIN EASY REACH, BED LOCKED AND IN LOWEST POSITION, WILL ENDORSE TO SPOTTER DRIVER NURSE FOR CONTINUITY OF CARE.
--- NOTE | 2021-02-14 19:10 | NUR ---
SULFONATION EQUIPMENT OPERATOR OPENING NOTES: Rec'd pt in bed, awake, A&Ox1, follows commands. On 2LPM NC tolerating well, no resp distress noted at this time. Left chest wall pacemaker noted, V-pacing on tele monitor. Right IJ TLC in place, patent and flushed w/ D5W w/ 30MeQ KCl infusing at 100ml/hr. Dressing c/d/i. Left NGT in place w/ Jevity infusing at 20ml/hr, tolerating feeding well. Gole catheter in place patent and draining urine via gravity. Safety measures in place. Will continue to monitor.
[2021-02-14] MEDS: TAMSULOSIN 0.4 MG CAP.SR.24H PO SCH (21:11)
[2021-02-14] MEDS: MONTELUKAST SODIUM (10MG) 10 MG TABLET PO SCH (21:11)
[2021-02-14] MEDS: MIRTAZAPINE 15 MG TABLET PO SCH (21:11)
[2021-02-15] VITALS (26 sets, daily range): BP systolic 90–116; BP diastolic 46–62
--- NOTE | 2021-02-15 03:43 | NUR ---
ASSISTANT SERVICE MANAGER NOTE: Pt noted to have pulled out NGT. Explained to pt importance of leaving NGT in place. Attempted with another RN to replace NGT, unsuccessful. Charge nurse attempted as well, but unable to place. NGT coiling in pt's mouth and pt moving around too much and not keeping head still. Per charge nurse, endorse to oncoming shift.
[2021-02-15] MEDS: IPRATROPIUM NEB FS 0.5 MG/2.5 ML AMPUL.NEB NEB SCH ×3 (07:03→20:10)
[2021-02-15] MEDS: ACETYLCYSTEINE 10% SOLN 400 MG/4 ML VIAL NEB SCH ×2 (07:03→13:11)
--- NOTE | 2021-02-15 07:30 | NUR ---
RN OPENING NOTES Patient present in bed, A/Ox1, awake , on 2L of O2, SPO2 97%, receiving breathing treatment, V-pacing on tele-monitor, Goel cath in place, draining yellow urine by gravity,RIJ TLC in place, patent, running TKO @ 10cc/hr, tolerating well, Safety precautions in place, HOB elevated, bed locked, in lowest position, call light in reach, will cont to monitor
[2021-02-15] MEDS: BLOOD SUGAR DIAGNOSTIC 1 EACH STRIP IN SCH ×4 (07:47→21:16)
[2021-02-15 08:05] LABS: BASOPHILS % (AUTO) 0.3 % (0.0-2.0); EOSINOPHILS % (AUTO) 1.3 % (0.0-6.0); HEMATOCRIT 25 % (39-51); HEMOGLOBIN 7.5 g/dL (13.5-17.5); LYMPHOCYTES # (AUTO) 0.3 /CMM (0.8-4.8); LYMPHOCYTES % (AUTO) 2.5 % (20.0-44.0); MEAN CORPUSCULAR HGB CONC 31 g/dl (31.0-36.0); MEAN CORPUSCULAR VOLUME 84 fL (80-96); MONOCYTES # (AUTO) 0.5 /CMM (0.1-1.30); MONOCYTES % (AUTO) 4.2 % (2.0-12.0); NEUTROPHILS # (AUTO) 10.4 /CMM (1.8-8.9); NEUTROPHILS % (AUTO) 91.7 % (43.0-81.0); PLATELET COUNT (AUTO) 256 /CMM (150-450); RED BLOOD CELL COUNT(AUTO) 2.91 MIL/uL (4.5-6.0); WHITE BLOOD COUNT (AUTO) 11.3 K/uL (4.3-11.0)
--- NOTE | 2021-02-15 08:20 | NUR ---
RN NOTE NG TUBE PLACED INTO L NARES, SIZE 16, VERIFIED WITH AUSCULTATION, PLACED ORDER FOR XRAY
[2021-02-15] MEDS: IV NS 0.9% 250 ML IV PRN (08:30)
[2021-02-15 08:37] LABS: ALANINE AMINOTRANSFERASE 15 U/L (12-78); ALKALINE PHOSPHATASE 285 U/L (46-116); ASPARTATE AMINOTRANSFERASE 26 U/L (15-37); BILIRUBIN,TOTAL 0.5 mg/dL (0.2-1.0); CALCIUM, SERUM 7.8 mg/dL (8.5-10.1); CARBON DIOXIDE 34 mmol/L (21-32); CHLORIDE 111 mmol/L (98-107); CREATININE 0.5 mg/dL (0.6-1.3); GLUCOSE 109 mg/dL (74-106); MAGNESIUM 2.2 mg/dL (1.8-2.4); PHOSPHORUS 3.5 mg/dL (2.5-4.9); SODIUM SERUM 146 mmol/L (136-145); UREA NITROGEN, BLOOD 32 mg/dL (7-18)
[2021-02-15 08:44] LABS: ALBUMIN 1.3 g/dL (3.4-5.0)
--- NOTE | 2021-02-15 08:51 | NUR ---
NGT confirmed with Chest X-RAY will administer PO meds and start feeding as ordered
[2021-02-15] MEDS: SPIRONOLACTONE 25 MG TABLET PO SCH (08:55)
[2021-02-15] MEDS: CHOLECALCIFEROL 1,000 UNIT TABLET (VIT D3) PO SCH (08:55)
[2021-02-15] MEDS: SUCRALFATE 1 G TABLET PO SCH ×4 (08:55→21:07)
[2021-02-15] MEDS: ASCORBIC ACID 500 MG TABLET PO SCH (08:56)
[2021-02-15] MEDS: ASPIRIN EC 81 MG TABLET.DR PO SCH (08:56)
[2021-02-15] MEDS: THIAMINE HCL 100 MG TABLET PO SCH (08:56)
[2021-02-15] MEDS: DAKINS QUARTER STRENGTH (0.125%) 480 ML BOTTLE TOP SCH (08:56)
[2021-02-15] MEDS: ZINC SULFATE 220 MG CAPSULE PO SCH (08:56)
[2021-02-15] MEDS: SERTRALINE HCL 50 MG TABLET PO SCH (08:56)
[2021-02-15] MEDS: Z GUARD REMEDY 2 OZ OINT TP SCH (08:57)
[2021-02-15] MEDS: MUPIROCIN OINT 2% 22 GM TUBE NS SCH ×2 (08:57→21:12)
[2021-02-15] MEDS: NEOMY SULF/BACITRAC ZN/POLY 15 GM TUBE TP SCH (08:57)
[2021-02-15] MEDS: THERAHONEY GEL 1.5 OZ TUBE TP SCH (08:57)
[2021-02-15] MEDS: PANTOPRAZOLE 40 MG TABLET.DR PO SCH (08:58)
[2021-02-15] MEDS: PROSOURCE / PROSTAT (PYXIS) 30 ML UDC GT SCH ×3 (08:58→16:54)
[2021-02-15] MEDS: FLUTICASONE/VILANTEROL 1 EACH BLST.W.DEV IH SCH (09:00)
[2021-02-15] MEDS: JEVITY 1.2 CAL 1,000 ML BOTTLE GT PRN (10:27)
[2021-02-15] MEDS: INSULIN REGULAR, HUMAN 100 UNIT/ML 3 ML VIAL SQ PRN ×4 (10:56→21:17)
--- NOTE | 2021-02-15 15:50 | NUR ---
RN NOTE Patient cleaned, repositioned tolerating tube feeding , bowel sounds active, BM and flatus present
[2021-02-15] MEDS: RIVAROXABAN 10 MG TABLET PO SCH (16:54)
[2021-02-15] MEDS: TRAMADOL HCL 50 MG TABLET PO PRN (16:57)
--- NOTE | 2021-02-15 18:46 | NUR ---
RN CLOSING NOTES Patient remains in bed, stable through the shift, was able to request repositioning and complained of pain, verbalizing understanding, importance of keeping NGT explained, nodded and agreed to treatment, cleaned, repositioned, medications given, wound care provided. Goel cath patent, IV line flushed and intact, Safety precisians in place, bed locked, in lowest portion, will endorse to PM shift RN for SHARLENE
--- NOTE | 2021-02-15 19:13 | NUR ---
TRACK MAN OPENING NOTES: Rec'd pt in bed, awake, A&Ox1, follows simple commands. On 2LPM NC tolerating well, no resp distress noted at this time. Left chest wall pacemaker noted, V-pacing on tele monitor. Right IJ TLC in place, patent and flushed. Dressing c/d/i. Left NGT in place w/ Jevity infusing at 20ml/hr, tolerating feeding well. Minimal residuals noted. Goel catheter in place patent and draining urine via gravity. Safety measures in place. Will continue to monitor.
[2021-02-15] MEDS: MIRTAZAPINE 15 MG TABLET PO SCH (21:07)
[2021-02-15] MEDS: MONTELUKAST SODIUM (10MG) 10 MG TABLET PO SCH (21:07)
[2021-02-15] MEDS: TAMSULOSIN 0.4 MG CAP.SR.24H PO SCH (21:07)
[2021-02-16] VITALS (24 sets, daily range): BP systolic 92–131; BP diastolic 46–65
[2021-02-16] MEDS: ACETYLCYSTEINE 10% SOLN 400 MG/4 ML VIAL NEB SCH ×3 (00:29→15:05)
[2021-02-16] MEDS: IPRATROPIUM NEB FS 0.5 MG/2.5 ML AMPUL.NEB NEB SCH ×4 (00:31→19:41)
--- NOTE | 2021-02-16 04:14 | NUR ---
TOURIST GUIDE NOTE: Pt noted w/ congestion. Frequently refused deep suctioning by RT when attempted. Explained risks and benefits of deep suctioning and pt continues to refuse. Charge nurse also aware. Will continue to monitor.
[2021-02-16] MEDS: BLOOD SUGAR DIAGNOSTIC 1 EACH STRIP IN SCH ×4 (07:30→23:20)
[2021-02-16] MEDS ORDERED: PHARMACY TO CHANGE PO MEDS TO GT/NG XX PRN (08:00)
[2021-02-16] MEDS ORDERED: DEXTROSE 50%-WATER 50 ML DISP.SYRIN IV PRN (08:00)
--- NOTE | 2021-02-16 08:00 | NUR ---
OPENING NOTES. REPORT RECEIVED FROM ELFEGO CANDELARIA. PT ALERT ORIENTED TO SELF. FOLLOWS COMMANDS. PT STATES HE WANTS TO WEAR THE OXYGEN MASK BUT REFUSES TO USE BIPAP. PER RT PT DOES NOT NEED OXYGEN MASK. RT GIVING PATIENT BREATHING TREATMENT AND SUCTIONING PATIENT AT THIS TIME. TUBE FEEDING INFUSING PER NG TUBE WITHOUT DIFFICULTY PER MD ORDERS. SAINI CATHETER DRAINING WITH DIFFICULTY. PT CHECKED ON HOURLY AND PRN BY NURSING STAFF.
[2021-02-16] MEDS ORDERED: ONDANSETRON 4 MG TAB.RAPDIS NG PRN (08:30)
[2021-02-16] MEDS ORDERED: MAG HYDROX/AL HYDROX/SIMETH 30 ML UDC NG PRN (08:30)
[2021-02-16] MEDS ORDERED: TRAMADOL HCL 50 MG TABLET NG PRN (08:30)
[2021-02-16] MEDS ORDERED: SENNOSIDES 8.6 MG TABLET NG PRN (08:30)
[2021-02-16] MEDS ORDERED: MAGNESIUM HYDROXIDE 30 ML UDC NG PRN (08:30)
[2021-02-16] MEDS: FLUTICASONE/VILANTEROL 1 EACH BLST.W.DEV IH SCH (09:00)
[2021-02-16] MEDS: ZINC SULFATE 220 MG CAPSULE NG SCH (09:03)
[2021-02-16] MEDS: PROSOURCE / PROSTAT (PYXIS) 30 ML UDC GT SCH ×3 (09:03→17:20)
[2021-02-16] MEDS: THIAMINE HCL 100 MG TABLET NG SCH (09:04)
[2021-02-16] MEDS: ASCORBIC ACID 500 MG TABLET NG SCH (09:07)
[2021-02-16] MEDS: CHOLECALCIFEROL 1,000 UNIT TABLET (VIT D3) NG SCH (09:07)
[2021-02-16] MEDS: SPIRONOLACTONE 25 MG TABLET NG SCH (09:08)
[2021-02-16] MEDS: ASPIRIN 81 MG TAB.CHEW NG SCH (09:08)
[2021-02-16] MEDS: SERTRALINE HCL 50 MG TABLET NG SCH (09:08)
[2021-02-16] MEDS: SUCRALFATE 1 G/10 ML UDC NG SCH ×4 (09:08→21:14)
[2021-02-16] MEDS: PANTOPRAZOLE 40 MG/PACK PACK NG SCH (09:08)
[2021-02-16] MEDS: MUPIROCIN OINT 2% 22 GM TUBE NS SCH (09:09)
[2021-02-16] MEDS: Z GUARD REMEDY 2 OZ OINT TP SCH (09:09)
[2021-02-16] MEDS: THERAHONEY GEL 1.5 OZ TUBE TP SCH (09:09)
[2021-02-16] MEDS: NEOMY SULF/BACITRAC ZN/POLY 15 GM TUBE TP SCH (09:09)
[2021-02-16] MEDS: DAKINS QUARTER STRENGTH (0.125%) 480 ML BOTTLE TOP SCH (09:09)
[2021-02-16] MEDS: JEVITY 1.2 CAL 1,000 ML BOTTLE GT PRN (17:20)
[2021-02-16] MEDS: RIVAROXABAN 10 MG TABLET NG SCH (17:23)
[2021-02-16] MEDS: IV NS 0.9% 250 ML IV PRN (18:32)
--- NOTE | 2021-02-16 18:54 | NUR ---
END OF SHIFT NOTE: PT HAD A FAIRLY UNEVENTFUL SHIFT. DEEP SUCTIONING BY RT X1 THIS AM. 1 FORMED BROWN BM THIS SHIFT. SAINI CATHETER IN PLACE, PATENT, 900 ML OUT THIS SHIFT. DRESSING CHANGES DONE PER MD ORDERS. PT APPEARS TO BE ORIENTED TO SELF ONLY. PT UNABLE TO SIGN CONSENT FOR PEG TUBE PLACEMENT, NO FAMILY NOTED. PT CHECKED ON HOURLY AND PRN BY NURSING STAFF.
--- NOTE | 2021-02-16 19:08 | NUR ---
SENIOR MANAGER MMCOE OPENING NOTES: Rec'd pt in bed, awake, A&Ox1-2, able to follow simple commands. On 2LPM NC tolerating well, no resp distress noted at this time. Left chest wall pacemaker noted, V-pacing on tele monitor. Right IJ TLC in place, patent and flushed. Dressing c/d/i. Left NGT in place w/ Jevity infusing at 20ml/hr, tolerating feeding well. No residuals noted at this time. Goel catheter in place patent and draining urine via gravity. Safety measures in place. Will continue to monitor.
--- NOTE | 2021-02-16 21:08 | NUR ---
ANIMATION ARTIST NOTE: MD Blackmon at bedside, received order to stop Bactroban oint. Order noted and carried out.
[2021-02-16] MEDS: TAMSULOSIN 0.4 MG CAP.SR.24H NG SCH (21:14)
[2021-02-16] MEDS: MIRTAZAPINE 15 MG TABLET NG SCH (21:14)
[2021-02-16] MEDS: MONTELUKAST SODIUM (10MG) 10 MG TABLET NG SCH (21:14)
[2021-02-16] MEDS: INSULIN REGULAR, HUMAN 100 UNIT/ML 3 ML VIAL SQ PRN (23:22)
[2021-02-17] VITALS (39 sets, daily range): BP systolic 97–130; BP diastolic 46–73
[2021-02-17] MEDS: ACETYLCYSTEINE 10% SOLN 400 MG/4 ML VIAL NEB SCH ×4 (00:32→23:36)
[2021-02-17] MEDS: IPRATROPIUM NEB FS 0.5 MG/2.5 ML AMPUL.NEB NEB SCH ×5 (00:33→23:36)
[2021-02-17 04:25] LABS: BASOPHILS # (AUTO) 0.1 /CMM (0.0-0.2); BASOPHILS % (AUTO) 0.9 % (0.0-2.0); EOSINOPHILS % (AUTO) 1.9 % (0.0-6.0); HEMATOCRIT 22 % (39-51); LYMPHOCYTES # (AUTO) 0.3 /CMM (0.8-4.8); LYMPHOCYTES % (AUTO) 3.4 % (20.0-44.0); MEAN CORPUSCULAR HGB CONC 31 g/dl (31.0-36.0); MEAN CORPUSCULAR VOLUME 85 fL (80-96); MONOCYTES # (AUTO) 0.5 /CMM (0.1-1.30); MONOCYTES % (AUTO) 4.9 % (2.0-12.0); NEUTROPHILS # (AUTO) 8.7 /CMM (1.8-8.9); NEUTROPHILS % (AUTO) 88.9 % (43.0-81.0); PLATELET COUNT (AUTO) 263 /CMM (150-450); RED BLOOD CELL COUNT(AUTO) 2.62 MIL/uL (4.5-6.0); WHITE BLOOD COUNT (AUTO) 9.8 K/uL (4.3-11.0)
[2021-02-17] MEDS: INSULIN REGULAR, HUMAN 100 UNIT/ML 3 ML VIAL SQ PRN ×2 (05:10→23:43)
[2021-02-17] MEDS: BLOOD SUGAR DIAGNOSTIC 1 EACH STRIP IN SCH ×4 (05:10→23:41)
[2021-02-17 05:38] LABS: HEMOGLOBIN 6.9 g/dL (13.5-17.5)
[2021-02-17 05:42] LABS: BILIRUBIN,TOTAL 0.5 mg/dL (0.2-1.0); CALCIUM, SERUM 7.8 mg/dL (8.5-10.1); CREATININE 0.7 mg/dL (0.6-1.3); MAGNESIUM 2.1 mg/dL (1.8-2.4); PHOSPHORUS 2.9 mg/dL (2.5-4.9); POTASSIUM 3.9 mmol/L (3.5-5.1); TOTAL PROTEIN, SERUM 6.1 g/dL (6.4-8.2)
[2021-02-17 05:44] LABS: ALBUMIN 1.3 g/dL (3.4-5.0)
--- NOTE | 2021-02-17 07:45 | NUR ---
OPENING NOTE: REPORT RECEIVED FROM ELFEGO CANDELARIA. NO NEW ORDERS THIS AM FROM PREVIOUS SHIFT. PT IS AWAKE OX1, FOLLOWS COMMANDS. OCCASIONAL NT SUCTION NEEDED. TUBE FEEDING INFUSING PER MD ORDERS. SAINI CATHETER DRAINING WITHOUT DIFFICULTY. PT CHECKED ON HOURLY AND PRN BY NURSING STAFF.
[2021-02-17] MEDS: PROSOURCE / PROSTAT (PYXIS) 30 ML UDC GT SCH ×3 (09:00→18:12)
[2021-02-17] MEDS: FLUTICASONE/VILANTEROL 1 EACH BLST.W.DEV IH SCH (09:00)
[2021-02-17] MEDS: ZINC SULFATE 220 MG CAPSULE NG SCH (09:01)
[2021-02-17] MEDS: CHOLECALCIFEROL 1,000 UNIT TABLET (VIT D3) NG SCH (09:01)
[2021-02-17] MEDS: SPIRONOLACTONE 25 MG TABLET NG SCH (09:01)
[2021-02-17] MEDS: SERTRALINE HCL 50 MG TABLET NG SCH (09:01)
[2021-02-17] MEDS: THIAMINE HCL 100 MG TABLET NG SCH (09:01)
[2021-02-17] MEDS: SUCRALFATE 1 G/10 ML UDC NG SCH ×4 (09:01→21:56)
[2021-02-17] MEDS: PANTOPRAZOLE 40 MG/PACK PACK NG SCH (09:01)
[2021-02-17] MEDS: ASCORBIC ACID 500 MG TABLET NG SCH (09:02)
[2021-02-17] MEDS: ASPIRIN 81 MG TAB.CHEW NG SCH (09:02)
[2021-02-17] MEDS: NEOMY SULF/BACITRAC ZN/POLY 15 GM TUBE TP SCH (09:03)
[2021-02-17] MEDS: DAKINS QUARTER STRENGTH (0.125%) 480 ML BOTTLE TOP SCH (09:03)
[2021-02-17] MEDS: Z GUARD REMEDY 2 OZ OINT TP SCH (09:03)
[2021-02-17] MEDS: THERAHONEY GEL 1.5 OZ TUBE TP SCH (09:04)
[2021-02-17 09:13] LABS: EOSINOPHILS % (MANUAL) 2 % (0-4); LYMPHOCYTES % (MANUAL) 4 % (16-48); MONOCYTES % (MANUAL) 10 % (0-11.0); NEUTROPHILS % (MANUAL) 84 (42-76)
[2021-02-17] MEDS ORDERED: LIDOCAINE 1%-EPI 1:100,000 20 ML VIAL TP ONE (10:30)
[2021-02-17] MEDS ORDERED: SILVER NITRATE APPLICATOR 1 EA BOX TP ONE (10:30)
[2021-02-17] MEDS ORDERED: SILVER NITRATE APPLICATOR 1 EA BOX TP PRN (11:00)
[2021-02-17] MEDS ORDERED: LIDOCAINE 1%-EPI 1:100,000 20 ML VIAL TP PRN (11:00)
--- NOTE | 2021-02-17 16:30 | NUR ---
PT REFUSES TO HAVE SACRAL DRESSING CHANGE DONE AT THIS TIME, INDICATES IT IS BECAUSE OF HIS BREATHING DIFFICULTY. PT IS CURRENTLY AUDIBLY WET SOUNDING, SATS 97%. RT RECENTLY GAVE PATIENT A BREATHING TREATMENT AND NT SUCTIONED PATIENT. PT AGREED TO HAVE DRESSINGS CHANGED ON FEET.
[2021-02-17] MEDS: IV NS 0.9% 250 ML IV PRN (18:12)
[2021-02-17] MEDS: JEVITY 1.2 CAL 1,000 ML BOTTLE GT PRN (18:12)
[2021-02-17] MEDS: RIVAROXABAN 10 MG TABLET NG SCH (18:14)
--- NOTE | 2021-02-17 19:06 | NUR ---
END OF SHIFT NOTE: PT'S BREATHING SOUNDED WET ALL DAY. RT DID FREQUENT NT SUCTIONING WITHOUT RELIEF. PT CONTINUES TO BE ON 2L NC AT 98-99% SATS. PT CONTINUES TO REFUSE TO HAVE HIS SACRAL DRESSING CHANGED DUE TO SHORTNESS OF BREATH. PT ALLOWED THE DRESSINGS ON HIS FEET TO BE CHANGED. 325 ML URINE OUTPUT TODAY. NO BM. 1 UNIT OF PRBCS GIVEN THIS SHIFT PER MD ORDERS. NEW ORDER FOR 100ML Q6H WATER FLUSHED STARTED TODAY. PT CHECKED ON HOURLY AND PRN BY NURSING STAFF.
--- NOTE | 2021-02-17 19:20 | NUR ---
RN NOTE RECEIVED PT IN BED, ALERT. ON O2 VIA NC AT 2LPM. SATING AT 97%. AUDIBLE CONGESTION NOTED, PT IS MOUTH BREATHER. NO SIGNS OF DISTRESS NOTED. SHOWS V PACING ON TELE MONITOR. PT WITH NGT PATENT AND INPLACE, ON FEEDING OF JEVITY. NO RESIDUAL NOTED. KEPT HOB ELEVATED. IV ON RIJ PATENT AND INTACT, FLUSHES WELL.SAINI IN PLACE, DRAINING URINE BY GRAVITY. ALL SAFETY MEASURES IN PLACE. WILL CONTINUE TO MONITOR.
[2021-02-17] MEDS: TAMSULOSIN 0.4 MG CAP.SR.24H NG SCH (21:56)
[2021-02-17] MEDS: MONTELUKAST SODIUM (10MG) 10 MG TABLET NG SCH (21:56)
[2021-02-17] MEDS: MIRTAZAPINE 15 MG TABLET NG SCH (21:56)
[2021-02-18] VITALS (13 sets, daily range): BP systolic 100–111; BP diastolic 45–65
--- NOTE | 2021-02-18 04:51 | NUR ---
RN NOTE STILL NOTED PT CONGESTION. NO SIGNS OF DISTRESS NOTED. DR. CANO NOTIFIED. ORDERED LASIX 20 MG IV X 1. ORDER NOTED AND CARRIED OUT.
[2021-02-18] MEDS ORDERED: FUROSEMIDE 20 MG/2 ML VIAL IV ONE (05:00)
[2021-02-18 05:07] LABS: BASOPHILS # (AUTO) 0.1 /CMM (0.0-0.2); BASOPHILS % (AUTO) 0.4 % (0.0-2.0); EOSINOPHILS % (AUTO) 0.1 % (0.0-6.0); HEMATOCRIT 26 % (39-51); HEMOGLOBIN 8.2 g/dL (13.5-17.5); LYMPHOCYTES # (AUTO) 0.4 /CMM (0.8-4.8); LYMPHOCYTES % (AUTO) 1.7 % (20.0-44.0); MEAN CORPUSCULAR HGB CONC 31 g/dl (31.0-36.0); MEAN CORPUSCULAR VOLUME 86 fL (80-96); MONOCYTES # (AUTO) 0.7 /CMM (0.1-1.30); MONOCYTES % (AUTO) 3.5 % (2.0-12.0); NEUTROPHILS % (AUTO) 94.3 % (43.0-81.0); PLATELET COUNT (AUTO) 282 /CMM (150-450); RED BLOOD CELL COUNT(AUTO) 3.03 MIL/uL (4.5-6.0); WHITE BLOOD COUNT (AUTO) 21.2 K/uL (4.3-11.0)
[2021-02-18 05:27] LABS: BILIRUBIN,TOTAL 0.7 mg/dL (0.2-1.0); CREATININE 0.8 mg/dL (0.6-1.3); MAGNESIUM 2.1 mg/dL (1.8-2.4); PHOSPHORUS 3.2 mg/dL (2.5-4.9); POTASSIUM 4.3 mmol/L (3.5-5.1); TOTAL PROTEIN, SERUM 6.3 g/dL (6.4-8.2)
[2021-02-18 05:43] LABS: ALBUMIN 1.4 g/dL (3.4-5.0)
[2021-02-18] MEDS: INSULIN REGULAR, HUMAN 100 UNIT/ML 3 ML VIAL SQ PRN (06:39)
[2021-02-18] MEDS: BLOOD SUGAR DIAGNOSTIC 1 EACH STRIP IN SCH ×2 (06:39→11:31)
--- NOTE | 2021-02-18 07:00 | NUR ---
RN NOTE PT TOLERATING 2L O2, NO SIGNS OF DISTRESS NOTED. KEPT HOB ELEVATED, GT FEEDING TOLERATING NO RESIDUALS NOTED. NO SIGNS OF ASPIRATION. SAINI DRAINING WELL, DRAINED [address] CANO AWARE. ALL SAFETY MEASURES MAINTAINED. ENDORSED TO NEXT SHIFT NURSE FOR SHARLENE
--- NOTE | 2021-02-18 07:05 | NUR ---
PLANNER INTERNSHIP Bedside report taken from [facility] nurse Tiffanie RN. Pt awake, alert and mumbles words. pt follows simple commands. perrla. pt on 2 L n/c tolerating well spo2 100% lung sounds coarse. pt has pacemaker left chest, V pacing on monitor. pt moves bue 2/5 and ble 1/5. pt has painting, oliguric clear yellow urine. Pt has multiple wounds sacral, buttocks, bue and ble, see flowsheet. pt on tube feed via ngt tolerating well. minimal residuals. all lines traced. all drips verified. vitals stable. safety measures in place. will continue to monitor.
[2021-02-18] MEDS: ALBUTEROL FS 2.5 MG/0.5 ML VIAL.NEB NEB PRN (07:47)
[2021-02-18] MEDS: IPRATROPIUM NEB FS 0.5 MG/2.5 ML AMPUL.NEB NEB SCH (07:47)
[2021-02-18] MEDS: ACETYLCYSTEINE 10% SOLN 400 MG/4 ML VIAL NEB SCH (07:47)
[2021-02-18] MEDS: SUCRALFATE 1 G/10 ML UDC NG SCH (08:40)
[2021-02-18] MEDS: DAKINS QUARTER STRENGTH (0.125%) 480 ML BOTTLE TOP SCH (08:40)
[2021-02-18] MEDS: THERAHONEY GEL 1.5 OZ TUBE TP SCH (08:40)
[2021-02-18] MEDS: THIAMINE HCL 100 MG TABLET NG SCH (08:40)
[2021-02-18] MEDS: PANTOPRAZOLE 40 MG/PACK PACK NG SCH (08:40)
[2021-02-18] MEDS: CHOLECALCIFEROL 1,000 UNIT TABLET (VIT D3) NG SCH (08:41)
[2021-02-18] MEDS: SPIRONOLACTONE 25 MG TABLET NG SCH (08:41)
[2021-02-18] MEDS: ZINC SULFATE 220 MG CAPSULE NG SCH (08:41)
[2021-02-18] MEDS: ASCORBIC ACID 500 MG TABLET NG SCH (08:41)
[2021-02-18] MEDS: SERTRALINE HCL 50 MG TABLET NG SCH (08:41)
[2021-02-18] MEDS: ASPIRIN 81 MG TAB.CHEW NG SCH (08:41)
[2021-02-18] MEDS: Z GUARD REMEDY 2 OZ OINT TP SCH (08:42)
[2021-02-18] MEDS: PROSOURCE / PROSTAT (PYXIS) 30 ML UDC GT SCH (08:44)
--- NOTE | 2021-02-18 08:45 | NUR ---
SEED TECHNICIAN Tube feeding off per charge nurse Jahaira CANDELARIA because pt to have peg placement at 4pm per md.
[2021-02-18] MEDS: FLUTICASONE/VILANTEROL 1 EACH BLST.W.DEV IH SCH (08:51)
--- NOTE | 2021-02-18 10:32 | NUR ---
POPCORN MACHINE OPERATOR Dr Daily at bedside assessing pt and updated on pt status. md aware pt unable to cough and that pt to get peg placement at bedside. per md pt will need to be intubated for procedure because he will not tolerate procedure on n/c. Per procedure to be done at 4pm, inform anesthesiologist and GI MD when at bedside and that they can call Dr Daily if they have any questions. charge nurse aware.
--- NOTE | 2021-02-18 11:56 | NUR ---
DIRECTOR PERIOPERATIVE 1156- Pt desaturating spo2 76%. pt placed on bipap 100% Andrey RT at bedside. spo2 not improving, spo2 dropped to 50s. pt pale, pt became unresponsive. pulse check done, no pulse present . 1157- Angela ortiz called. CPR started by Darcie CANDELARIA. RT at bedside manually bagging pt. ER MD Wilmar Wright at bedside. pt intubated 1201pm , positive placement of ET tube. Code blue in progress see Code blue sheet for details 1215- Pt asystole. no pulse or movement present dispite code blue efforts. Per Dr Wright code stopped. Time of called. code team in agreement.
--- NOTE | 2021-02-18 12:30 | NUR ---
RT note. @ 1156 rt/rn at the bedside. Pt desaturating spo2 76%. pt placed on bipap 100% , spo2 not improving, spo2 dropped to 50s. pt pale, pt became unresponsive. pulse check done, no pulse present . @1157- Code blue called. CPR started by Darcie CANDELARIA. RT at bedside manually bagging pt. ER MD Wilmar Wright at bedside. x3 RT at the bedside. assisted intubation @ 1201pm , positive color exchanged via capnography, equal chest rise noted ETT 7.5 @ 24 cm lip line. Code blue in progress see Code blue sheet for details @ 1215- Pt asystole no pulse or movement present despite code blue efforts. Per Dr Wright code stopped. Time of called.
[2021-02-18] MEDS ORDERED: EPINEPHRINE (1:10,000) SYRINGE 1 MG/10 ML DISP.SYRIN ONE (12:34)
[2021-02-18] MEDS ORDERED: SODIUM BICARBONATE SYR 50 MEQ/50 ML DISP.SYRIN ONE (12:34)
[2021-02-18] MEDS ORDERED: CALCIUM CHLORIDE 1,000 MG/10 ML DISP.SYRIN ONE (12:34)
[2021-02-18] MEDS ORDERED: AMIODARONE 150 MG/3 ML VIAL IV ONE (12:34)
[2021-02-18] MEDS ORDERED: Magnesium 1 GM/2 ML VIAL ONE (12:34)
--- NOTE | 2021-02-18 12:50 | NUR ---
AUTO BODY REPAIR ESTIMATOR [facility] called spoke to Rosalia. Pt not a candidate for donation. Reference # [id number]. Pt not candidate for [facility] per charge nurse. post mortem care to be done and body to be taken to [facility].
--- NOTE | 2021-02-18 14:00 | NUR ---
ALGEBRA TUTOR Post mortem care completed. security called. [place] [facility] [place] belongings at bedside and no family.
== END 2021-02-18 12:15 | DRG 853 ==
LOC: ER 10:12 → TRANSITION 12:53 → TELE1 16:28 → MEDSG1 01-31 08:38 → ICU 02-02 14:31
PROVIDERS: ADMIT Registered Nurse; ATTEND Nurse Practitioner Acute Care
PROC: 05HY33Z Insertion of Infusion Device into Upper Vein, Percutaneous Approach (ICD-10-PCS; 2021-01-31)
PROC: 0JBR0ZZ Excision of Left Foot Subcutaneous Tissue and Fascia, Open Approach (ICD-10-PCS; principal; 2021-02-01)
PROC: 0JBQ0ZZ Excision of Right Foot Subcutaneous Tissue and Fascia, Open Approach (ICD-10-PCS; 2021-02-01)
PROC: 5A1955Z Respiratory Ventilation, Greater than 96 Consecutive Hours (ICD-10-PCS; 2021-02-02)
PROC: 0BH18EZ Insertion of Endotracheal Airway into Trachea, Via Natural or Artificial Opening Endoscopic (ICD-10-PCS; 2021-02-02)
PROC: 05HM33Z Insertion of Infusion Device into Right Internal Jugular Vein, Percutaneous Approach (ICD-10-PCS; 2021-02-02)
PROC: B543ZZA Ultrasonography of Right Jugular Veins, Guidance (ICD-10-PCS; 2021-02-02)
PROC: 0BJ08ZZ Inspection of Tracheobronchial Tree, Via Natural or Artificial Opening Endoscopic (ICD-10-PCS; 2021-02-02)
PROC: 0BJ08ZZ Inspection of Tracheobronchial Tree, Via Natural or Artificial Opening Endoscopic (ICD-10-PCS; 2021-02-03)
PROC: 0JBR0ZZ Excision of Left Foot Subcutaneous Tissue and Fascia, Open Approach (ICD-10-PCS; 2021-02-08)
PROC: 0JBQ0ZZ Excision of Right Foot Subcutaneous Tissue and Fascia, Open Approach (ICD-10-PCS; 2021-02-08)
PROC: 5A2204Z Restoration of Cardiac Rhythm, Single (ICD-10-PCS; 2021-02-08)
PROC: 5A09357 Assistance with Respiratory Ventilation, Less than 24 Consecutive Hours, Continuous Positive Airway Pressure (ICD-10-PCS; 2021-02-10)
PROC: 30233N1 Transfusion of Nonautologous Red Blood Cells into Peripheral Vein, Percutaneous Approach (ICD-10-PCS; 2021-02-17)
PROC: 0BH17EZ Insertion of Endotracheal Airway into Trachea, Via Natural or Artificial Opening (ICD-10-PCS; 2021-02-18)
DX: A41.9 Sepsis, unspecified organism (principal); I63.233 Cerebral infarction due to unspecified occlusion or stenosis of bilateral carotid arteries; R53.2 Functional quadriplegia; J96.01 Acute respiratory failure with hypoxia; J69.0 Pneumonitis due to inhalation of food and vomit; J96.02 Acute respiratory failure with hypercapnia; I13.0 Hypertensive heart and chronic kidney disease with heart failure and stage 1 through stage 4 chronic kidney disease, or unspecified chronic kidney disease; I42.9 Cardiomyopathy, unspecified; L97.329 Non-pressure chronic ulcer of left ankle with unspecified severity; L97.319 Non-pressure chronic ulcer of right ankle with unspecified severity; R47.01 Aphasia; B37.49 Other urogenital candidiasis; J44.0 Chronic obstructive pulmonary disease with (acute) lower respiratory infection; J98.11 Atelectasis; E87.4 Mixed disorder of acid-base balance; E87.0 Hyperosmolality and hypernatremia; G93.40 Encephalopathy, unspecified; I87.313 Chronic venous hypertension (idiopathic) with ulcer of bilateral lower extremity; R29.720 NIHSS score 20; Z95.0 Presence of cardiac pacemaker; E11.51 Type 2 diabetes mellitus with diabetic peripheral angiopathy without gangrene; I70.25 Atherosclerosis of native arteries of other extremities with ulceration; Z20.822 Contact with and (suspected) exposure to COVID-19; E11.22 Type 2 diabetes mellitus with diabetic chronic kidney disease; I49.5 Sick sinus syndrome; E11.621 Type 2 diabetes mellitus with foot ulcer; E83.39 Other disorders of phosphorus metabolism; M10.9 Gout, unspecified; Z79.51 Long term (current) use of inhaled steroids; Z79.899 Other long term (current) drug therapy; R13.10 Dysphagia, unspecified; Z79.01 Long term (current) use of anticoagulants; I25.119 Atherosclerotic heart disease of native coronary artery with unspecified angina pectoris; R65.20 Severe sepsis without septic shock; M24.562 Contracture, left knee; M24.561 Contracture, right knee; N18.9 Chronic kidney disease, unspecified; N40.0 Benign prostatic hyperplasia without lower urinary tract symptoms; L98.429 Non-pressure chronic ulcer of back with unspecified severity; I50.9 Heart failure, unspecified; S80.212A Abrasion, left knee, initial encounter; X58.XXXA Exposure to other specified factors, initial encounter; Y92.9 Unspecified place or not applicable; E87.6 Hypokalemia; E83.42 Hypomagnesemia; D64.9 Anemia, unspecified; I48.91 Unspecified atrial fibrillation; L97.529 Non-pressure chronic ulcer of other part of left foot with unspecified severity; L97.519 Non-pressure chronic ulcer of other part of right foot with unspecified severity; M62.562 Muscle wasting and atrophy, not elsewhere classified, left lower leg; M62.561 Muscle wasting and atrophy, not elsewhere classified, right lower leg; Z74.09 Other reduced mobility; L89.159 Pressure ulcer of sacral region, unspecified stage; R23.3 Spontaneous ecchymoses
CPT/HCPCS: 31623; 31720; 36410; 36415; 36600; 70450-TC; 70496-TC; 70498-TC; 71045-TC; 80048-TC; 80053-TC; 80061-TC; 80202-TC; 82088; 82436-TC; 82533; 82728-TC; 82803-TC; 82962-TC; 83540-TC; 83735-TC; 84100-TC; 84132-TC; 84133-TC; 84244; 84300-TC; 84439-TC; 84443-TC; 84484-TC; 85025-TC; 85730-TC; 86850-TC; 87040-TC; 87070-TC; 87081-TC; 87086-TC; 92526; 92611-TC; 93307-TC; 93880-TC; 93971-TC; 94002-TC; 94003-TC; 94640-TC; 94668-TC; 94760-TC; 94799-TC; 97110-TC; 97530-TC; 99082-TC; A4624; A6253; A6403; A9563; C1751; C9113; G0378; J0171; J0282; J1720; J1815; J1940; J2185; J2248; J3370; J3475; J3480; J3490; J7030; J7050; J7060; J7070; P9016; Q0162; Q9967; U0003